=== PATIENT | female | born 1965 | race Caucasian/White ===

== ENCOUNTER 2017-06-21 08:19 | Inpatient (IN) ==
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
[2017-06-21] MEDS ORDERED: LORazepam 2 MG/ML VIAL ONE (08:39)
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
[2017-06-21] MEDS ORDERED: IPRATROPIUM/ALBUTEROL 3 ML AMPUL.NEB NEB ONE ×3 (08:59→12:55)
[2017-06-21 09:00] LABS: Basophils # (Auto) 0.1 K/mcL (0.0-0.3); Basophils % (Auto) 0.4 % (0.0-2.0); Eosinophils # (Auto) 0.3 K/mcL (0.0-0.7); Granulocytes % (Auto) 62.8 % (38.0-78.0); Lymphocytes # (Auto) 4.1 K/mcL (1.5-4.8); Lymphocytes % (Auto) 30.5 % (15.5-49.0); Mean Cell Volume 94.2 fL (80.0-100.0); Mean Corpuscular HGB Conc 33.1 g/dL (31.0-36.0); Mean Corpuscular Hemoglobin 31.2 pg (26.0-34.0); Monocytes # (Auto) 0.6 K/mcL (0.1-0.9); Monocytes % (Auto) 4.3 % (1.0-12.0); Platelet Count 218 K/mcL (140-440); RBC 4.38 M/mcL (4.00-5.20); Red Cell Distribution Width 14.5 % (11.5-14.5)
[2017-06-21 09:17] LABS: ALT/SGPT 30 U/l (0-40); Albumin 4.3 gm/dL (3.2-5.2); Albumin/Globulin Ratio 1.2 (1.0-2.3); Alkaline Phosphatase 66 U/L (39-117); Blood Urea Nitrogen 20 mg/dl (6-20)
[2017-06-21] MEDS ORDERED: LORazepam 2 MG/ML VIAL IV ONE ×2 (09:21→09:48)
[2017-06-21] MEDS ORDERED: IBUPROFEN 600 MG TABLET PO ONE (11:06)
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
[2017-06-21] MEDS ORDERED: methylPREDNISolone SOD SUCC 125 MG/2 ML VIAL IV ONE (14:18)
[2017-06-21] MEDS ORDERED: ONDANSETRON 4 MG/2 ML VIAL IV PRN (16:20)
[2017-06-21] MEDS ORDERED: ALBUTEROL SULFATE 2.5 MG/3 ML NEBULIZER NEB ONE (16:23)
[2017-06-21] MEDS ORDERED: DEXTROSE 31 GM ORAL.SUSP PO PRN (16:31)
[2017-06-21] MEDS ORDERED: ALBUTEROL SULFATE 2.5 MG/3 ML NEBULIZER ONE (16:31)
[2017-06-21] MEDS ORDERED: DEXTROSE 50% 50 ML VIAL IV PRN (16:31)
[2017-06-21] MEDS ORDERED: DICYCLOMINE 20 MG TABLET PO SCH (17:00)
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
[2017-06-21] MEDS: INSULIN LISPRO 1 UNIT/0.01 ML UNIT SQ SCH ×2 (17:22→21:31)
[2017-06-21 18:23] LABS: ALT/SGPT 29 U/l (0-40); Albumin 4.3 gm/dL (3.2-5.2); Albumin/Globulin Ratio 1.3 (1.0-2.3); Alkaline Phosphatase 62 U/L (39-117); Blood Urea Nitrogen 19 mg/dl (6-20)
[2017-06-21] MEDS: IPRATROPIUM/ALBUTEROL 3 ML AMPUL.NEB NEB SCH (18:55)
[2017-06-21] MEDS ORDERED: DICYCLOMINE 20 MG TABLET PO PRN (19:51)
[2017-06-21] MEDS: NORTRIPTYLINE 25 MG CAPSULE PO SCH (21:31)
[2017-06-21] MEDS: LORazepam 1 MG TABLET PO PRN (21:31)
[2017-06-21] MEDS: methylPREDNISolone SOD SUCC 125 MG/2 ML VIAL IV SCH (21:32)
[2017-06-21] MEDS: INSULIN GLARGINE, HUMAN 1 UNIT/0.01 ML SQ SCH (21:32)
[2017-06-21] MEDS: ALBUTEROL SULFATE 2.5 MG/3 ML NEBULIZER NEB PRN (22:20)
[2017-06-22] MEDS: ACETAMINOPHEN 325 MG TABLET PO PRN ×2 (03:00→20:39)
[2017-06-22] MEDS: IPRATROPIUM/ALBUTEROL 3 ML AMPUL.NEB NEB SCH ×4 (03:00→20:34)
[2017-06-22] MEDS: methylPREDNISolone SOD SUCC 125 MG/2 ML VIAL IV SCH ×3 (05:48→22:20)
[2017-06-22 05:52] LABS: Mean Cell Volume 93.9 fL (80.0-100.0); Mean Corpuscular HGB Conc 33.2 g/dL (31.0-36.0); Mean Corpuscular Hemoglobin 31.2 pg (26.0-34.0); Platelet Count 175 K/mcL (140-440); RBC 3.95 M/mcL (4.00-5.20); Red Cell Distribution Width 14.6 % (11.5-14.5)
[2017-06-22 06:03] LABS: ALT/SGPT 27 U/l (0-40); Albumin/Globulin Ratio 1.3 (1.0-2.3); Alkaline Phosphatase 58 U/L (39-117); Blood Urea Nitrogen 19 mg/dl (6-20)
[2017-06-22 06:36] LABS: Anisocytosis 1+ (NONE SEEN); Band Neutrophils % 4 % (0-10); Lymphocytes % 13 % (15-49); Monocytes % (Manual) 2 % (1-12); Platelet Estimate NORMAL (NORMAL); RBC Morphology ABNORM (NORMAL); Segmented Neutrophils % 81 % (38-78)
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
[2017-06-22] MEDS: LEVOTHYROXINE SODIUM 112 MCG TABLET PO SCH (07:44)
[2017-06-22] MEDS: INSULIN LISPRO 1 UNIT/0.01 ML UNIT SQ SCH ×7 (07:44→20:42)
[2017-06-22] MEDS: PANTOPRAZOLE 40 MG TABLET PO SCH (07:44)
[2017-06-22] MEDS: HYDROcodone/APAP 5/325MG TABLET PO PRN ×4 (08:38→22:18)
[2017-06-22] MEDS: ENOXAPARIN 40 MG/0.4 ML SYRINGE SQ SCH (09:09)
[2017-06-22] MEDS: ATORVASTATIN 20 MG TABLET PO SCH (09:10)
[2017-06-22] MEDS: INSULIN GLARGINE, HUMAN 1 UNIT/0.01 ML SQ SCH ×3 (09:10→20:52)
[2017-06-22] MEDS ORDERED: INSULIN GLARGINE, HUMAN 1 UNIT/0.01 ML SQ ONE (10:15)
[2017-06-22] MEDS: LORazepam 1 MG TABLET PO PRN ×2 (10:24→18:38)
[2017-06-22] MEDS: BENZOCAINE/MENTHOL 1 LOZENGE PO PRN (12:09)
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
[2017-06-22] MEDS: ALBUTEROL SULFATE 2.5 MG/3 ML NEBULIZER NEB PRN ×2 (15:43→22:52)
[2017-06-22] MEDS: NORTRIPTYLINE 25 MG CAPSULE PO SCH (20:39)
[2017-06-23] MEDS: IPRATROPIUM/ALBUTEROL 3 ML AMPUL.NEB NEB SCH ×3 (01:34→14:31)
[2017-06-23] MEDS: methylPREDNISolone SOD SUCC 125 MG/2 ML VIAL IV SCH (05:28)
[2017-06-23 05:41] LABS: Mean Cell Volume 94.8 fL (80.0-100.0); Mean Corpuscular HGB Conc 33.1 g/dL (31.0-36.0); Mean Corpuscular Hemoglobin 31.4 pg (26.0-34.0); Platelet Count 186 K/mcL (140-440); RBC 3.93 M/mcL (4.00-5.20); Red Cell Distribution Width 14.7 % (11.5-14.5)
[2017-06-23 05:57] LABS: ALT/SGPT 22 U/l (0-40); Albumin/Globulin Ratio 1.3 (1.0-2.3); Alkaline Phosphatase 59 U/L (39-117); Blood Urea Nitrogen 23 mg/dl (6-20)
[2017-06-23 06:31] LABS: Band Neutrophils % 7 % (0-10); Lymphocytes % 8 % (15-49); Monocytes % (Manual) 1 % (1-12); Platelet Estimate NORMAL (NORMAL); RBC Morphology NORMAL (NORMAL); Segmented Neutrophils % 84 % (38-78)
[2017-06-23] MEDS ORDERED: SODIUM POLYSTYRENE SULFONATE 15 GM/60 ML SUSPENSION PO ONE (07:09)
[2017-06-23] MEDS: PANTOPRAZOLE 40 MG TABLET PO SCH (08:27)
[2017-06-23] MEDS: LEVOTHYROXINE SODIUM 112 MCG TABLET PO SCH (08:27)
[2017-06-23] MEDS: ATORVASTATIN 20 MG TABLET PO SCH (08:44)
[2017-06-23] MEDS: INSULIN LISPRO 1 UNIT/0.01 ML UNIT SQ SCH ×7 (08:44→20:53)
[2017-06-23] MEDS: ENOXAPARIN 40 MG/0.4 ML SYRINGE SQ SCH (08:45)
[2017-06-23] MEDS: INSULIN GLARGINE, HUMAN 1 UNIT/0.01 ML SQ SCH ×2 (08:45→20:54)
[2017-06-23 09:38] LABS: Estimated Average Glucose(eAG) 160 mg/dL; Hemoglobin A1C 7.2 % HGB (4.0-6.0)
[2017-06-23] MEDS: ALBUTEROL SULFATE 2.5 MG/3 ML NEBULIZER NEB PRN (10:24)
[2017-06-23] MEDS: predniSONE 20 MG TABLET PO SCH (11:06)
[2017-06-23] MEDS: guaiFENesin 600 MG TAB.SR.12H PO SCH ×2 (11:06→21:18)
[2017-06-23] MEDS: LORazepam 1 MG TABLET PO PRN ×2 (11:06→17:32)
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
[2017-06-23 12:22] LABS: Blood Urea Nitrogen 25 mg/dl (6-20)
[2017-06-23] MEDS: HYDROcodone/APAP 5/325MG TABLET PO PRN ×2 (14:34→19:29)
[2017-06-23] MEDS ORDERED: LEVALBUTEROL 1.25 MG/3 ML AMPUL.NEB NEB PRN (16:26)
[2017-06-23] MEDS ORDERED: DEXTROSE 31 GM ORAL.SUSP PO PRN (16:27)
[2017-06-23] MEDS ORDERED: DEXTROSE 50% 50 ML VIAL IV PRN (16:27)
[2017-06-23] MEDS: IPRATROPIUM 2.5 ML AMPUL.NEB NEB SCH ×2 (16:35→21:27)
[2017-06-23] MEDS ORDERED: 0.9 % SODIUM CHLORIDE 1,000 ML IV SCH (18:15)
[2017-06-23] MEDS: LEVALBUTEROL 1.25 MG/3 ML AMPUL.NEB NEB SCH (18:31)
[2017-06-23] MEDS ORDERED: LEVALBUTEROL 0.63 MG/3 ML AMPUL.NEB NEB SCH (19:00)
[2017-06-23] MEDS: BENZOCAINE/MENTHOL 1 LOZENGE PO PRN (19:40)
[2017-06-23] MEDS: NORTRIPTYLINE 25 MG CAPSULE PO SCH (21:18)
[2017-06-24] MEDS: IPRATROPIUM 2.5 ML AMPUL.NEB NEB SCH ×4 (01:26→19:53)
[2017-06-24] MEDS: LEVALBUTEROL 1.25 MG/3 ML AMPUL.NEB NEB SCH ×4 (01:27→19:53)
[2017-06-24 05:28] LABS: Mean Cell Volume 94.4 fL (80.0-100.0); Mean Corpuscular HGB Conc 32.8 g/dL (31.0-36.0); Mean Corpuscular Hemoglobin 30.9 pg (26.0-34.0); Platelet Count 177 K/mcL (140-440); RBC 3.75 M/mcL (4.00-5.20); Red Cell Distribution Width 14.5 % (11.5-14.5)
[2017-06-24 06:02] LABS: ALT/SGPT 18 U/l (0-40); Albumin 3.6 gm/dL (3.2-5.2); Albumin/Globulin Ratio 1.3 (1.0-2.3); Alkaline Phosphatase 51 U/L (39-117); Blood Urea Nitrogen 25 mg/dl (6-20)
[2017-06-24 06:39] LABS: Lymphocytes % 25 % (15-49); Monocytes % (Manual) 6 % (1-12); Platelet Estimate NORMAL (NORMAL); RBC Morphology NORMAL (NORMAL); Segmented Neutrophils % 69 % (38-78)
[2017-06-24] MEDS: INSULIN LISPRO 1 UNIT/0.01 ML UNIT SQ SCH ×5 (07:43→21:32)
[2017-06-24] MEDS: LEVOTHYROXINE SODIUM 112 MCG TABLET PO SCH (07:53)
[2017-06-24] MEDS: PANTOPRAZOLE 40 MG TABLET PO SCH (07:53)
--- NOTE | 2017-06-24 08:50 | XRay Report ---
INDICATION: Small consolidation. Hypoxia. TECHNIQUE: AP chest x-ray,portable semiupright COMPARISON: 06/22/2017, 06/21/2017 FINDINGS:Lungs remain negative. No parenchymal infiltrate or mass. Heart size and vascularity are normal. No pulmonary edema. No pulmonary congestion. No acute abnormality or interval change IMPRESSION: Negative chest x-ray. No interval change Interpreted and Authenticated by: Harjeet Mims 06/24/17
[2017-06-24] MEDS: predniSONE 20 MG TABLET PO SCH ×2 (08:59→12:32)
[2017-06-24] MEDS: guaiFENesin 600 MG TAB.SR.12H PO SCH ×2 (08:59→21:32)
[2017-06-24] MEDS: HYDROcodone/APAP 5/325MG TABLET PO PRN ×3 (09:00→19:55)
[2017-06-24] MEDS: ATORVASTATIN 20 MG TABLET PO SCH (09:00)
[2017-06-24] MEDS: ENOXAPARIN 40 MG/0.4 ML SYRINGE SQ SCH (09:01)
[2017-06-24] MEDS: LORazepam 1 MG TABLET PO PRN ×3 (09:06→21:59)
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
[2017-06-24] MEDS: INSULIN GLARGINE, HUMAN 1 UNIT/0.01 ML SQ SCH ×2 (10:37→21:32)
[2017-06-24] MEDS: LEVALBUTEROL 0.63 MG/3 ML AMPUL.NEB NEB PRN (16:10)
[2017-06-24] MEDS ORDERED: BISACODYL 10 MG SUPP.RECT PR PRN (20:27)
[2017-06-24] MEDS ORDERED: MAGNESIUM HYDROXIDE 30 ML ORAL.SUSP PO PRN (20:27)
[2017-06-24] MEDS: NORTRIPTYLINE 25 MG CAPSULE PO SCH (21:32)
[2017-06-24] MEDS: DOCUSATE SODIUM 100 MG CAPSULE PO SCH (21:32)
[2017-06-25] MEDS: IPRATROPIUM 2.5 ML AMPUL.NEB NEB SCH ×4 (03:59→18:46)
[2017-06-25] MEDS: LEVALBUTEROL 1.25 MG/3 ML AMPUL.NEB NEB SCH ×4 (04:00→18:46)
[2017-06-25] MEDS: HYDROcodone/APAP 5/325MG TABLET PO PRN ×3 (04:00→18:22)
[2017-06-25] MEDS: LORazepam 1 MG TABLET PO PRN ×2 (04:04→22:01)
[2017-06-25 04:51] LABS: Mean Cell Volume 94.2 fL (80.0-100.0); Mean Corpuscular HGB Conc 33.8 g/dL (31.0-36.0); Mean Corpuscular Hemoglobin 31.9 pg (26.0-34.0); Platelet Count 167 K/mcL (140-440); RBC 3.73 M/mcL (4.00-5.20); Red Cell Distribution Width 14.3 % (11.5-14.5)
[2017-06-25 05:17] LABS: ALT/SGPT 23 U/l (0-40); Albumin 3.6 gm/dL (3.2-5.2); Albumin/Globulin Ratio 1.3 (1.0-2.3); Alkaline Phosphatase 50 U/L (39-117); Blood Urea Nitrogen 23 mg/dl (6-20)
[2017-06-25 06:18] LABS: Band Neutrophils % 2 % (0-10); Lymphocytes % 21 % (15-49); Monocytes % (Manual) 1 % (1-12); Platelet Estimate NORMAL (NORMAL); RBC Morphology NORMAL (NORMAL); Segmented Neutrophils % 76 % (38-78)
[2017-06-25] MEDS: LEVOTHYROXINE SODIUM 112 MCG TABLET PO SCH (07:31)
[2017-06-25] MEDS: PANTOPRAZOLE 40 MG TABLET PO SCH (07:32)
[2017-06-25] MEDS: INSULIN LISPRO 1 UNIT/0.01 ML UNIT SQ SCH ×4 (07:40→20:52)
[2017-06-25] MEDS: predniSONE 20 MG TABLET PO SCH ×2 (07:55→12:11)
[2017-06-25] MEDS: DOCUSATE SODIUM 100 MG CAPSULE PO SCH ×2 (08:56→20:52)
[2017-06-25] MEDS: guaiFENesin 600 MG TAB.SR.12H PO SCH ×2 (08:56→20:52)
[2017-06-25] MEDS: ENOXAPARIN 40 MG/0.4 ML SYRINGE SQ SCH (08:56)
[2017-06-25] MEDS: INSULIN GLARGINE, HUMAN 1 UNIT/0.01 ML SQ SCH ×2 (09:40→20:51)
[2017-06-25] MEDS: ATORVASTATIN 20 MG TABLET PO SCH (09:40)
[2017-06-25] MEDS: 0.9 % SODIUM CHLORIDE 10 ML SYRINGE IV SCH ×3 (09:48→20:52)
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
[2017-06-25] MEDS: NORTRIPTYLINE 25 MG CAPSULE PO SCH (20:52)
[2017-06-25] MEDS: LEVALBUTEROL 0.63 MG/3 ML AMPUL.NEB NEB PRN (22:57)
[2017-06-26] MEDS: LEVALBUTEROL 1.25 MG/3 ML AMPUL.NEB NEB SCH ×4 (00:50→18:50)
[2017-06-26] MEDS: IPRATROPIUM 2.5 ML AMPUL.NEB NEB SCH ×4 (00:50→18:50)
[2017-06-26] MEDS: LEVALBUTEROL 0.63 MG/3 ML AMPUL.NEB NEB PRN ×2 (04:42→10:31)
[2017-06-26] MEDS: LORazepam 1 MG TABLET PO PRN ×3 (04:42→21:38)
[2017-06-26] MEDS: HYDROcodone/APAP 5/325MG TABLET PO PRN ×2 (04:42→11:18)
[2017-06-26] MEDS: 0.9 % SODIUM CHLORIDE 10 ML SYRINGE IV SCH ×3 (04:43→22:29)
[2017-06-26 05:38] LABS: Mean Cell Volume 94.8 fL (80.0-100.0); Mean Corpuscular Hemoglobin 31.3 pg (26.0-34.0); Platelet Count 154 K/mcL (140-440); RBC 3.89 M/mcL (4.00-5.20); Red Cell Distribution Width 14.2 % (11.5-14.5)
[2017-06-26 05:58] LABS: ALT/SGPT 25 U/l (0-40); Albumin 3.5 gm/dL (3.2-5.2); Albumin/Globulin Ratio 1.3 (1.0-2.3); Alkaline Phosphatase 49 U/L (39-117); Blood Urea Nitrogen 23 mg/dl (6-20)
[2017-06-26 06:21] LABS: Eosinophils % (Manual) 1 % (0-7); Lymphocytes % 22 % (15-49); Monocytes % (Manual) 7 % (1-12); Platelet Estimate NORMAL (NORMAL); RBC Morphology NORMAL (NORMAL); Segmented Neutrophils % 70 % (38-78)
[2017-06-26] MEDS: LEVOTHYROXINE SODIUM 112 MCG TABLET PO SCH (08:01)
[2017-06-26] MEDS: PANTOPRAZOLE 40 MG TABLET PO SCH (08:01)
[2017-06-26] MEDS: predniSONE 20 MG TABLET PO SCH ×2 (08:01→11:50)
[2017-06-26] MEDS: INSULIN LISPRO 1 UNIT/0.01 ML UNIT SQ SCH ×4 (08:03→21:37)
[2017-06-26] MEDS: DOCUSATE SODIUM 100 MG CAPSULE PO SCH ×2 (08:52→21:38)
[2017-06-26] MEDS: guaiFENesin 600 MG TAB.SR.12H PO SCH ×2 (08:52→21:37)
[2017-06-26] MEDS: INSULIN GLARGINE, HUMAN 1 UNIT/0.01 ML SQ SCH ×2 (08:52→21:37)
[2017-06-26] MEDS: ENOXAPARIN 40 MG/0.4 ML SYRINGE SQ SCH (08:52)
[2017-06-26] MEDS: ATORVASTATIN 20 MG TABLET PO SCH (08:54)
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
[2017-06-26] MEDS: NORTRIPTYLINE 25 MG CAPSULE PO SCH (21:38)
[2017-06-27] MEDS: IPRATROPIUM 2.5 ML AMPUL.NEB NEB SCH ×4 (00:46→19:23)
[2017-06-27] MEDS: LEVALBUTEROL 1.25 MG/3 ML AMPUL.NEB NEB SCH ×4 (00:46→19:24)
[2017-06-27] MEDS: PANTOPRAZOLE 40 MG TABLET PO SCH (07:58)
[2017-06-27] MEDS: predniSONE 20 MG TABLET PO SCH ×2 (07:58→11:52)
[2017-06-27] MEDS: LEVOTHYROXINE SODIUM 112 MCG TABLET PO SCH (07:58)
[2017-06-27] MEDS: 0.9 % SODIUM CHLORIDE 10 ML SYRINGE IV SCH ×3 (07:58→20:54)
[2017-06-27] MEDS: INSULIN LISPRO 1 UNIT/0.01 ML UNIT SQ SCH ×4 (08:10→20:51)
[2017-06-27] MEDS: ATORVASTATIN 20 MG TABLET PO SCH (09:29)
[2017-06-27] MEDS: DOCUSATE SODIUM 100 MG CAPSULE PO SCH ×2 (09:30→20:53)
[2017-06-27] MEDS: guaiFENesin 600 MG TAB.SR.12H PO SCH ×2 (09:30→20:53)
[2017-06-27] MEDS: ENOXAPARIN 40 MG/0.4 ML SYRINGE SQ SCH (09:31)
[2017-06-27] MEDS: INSULIN GLARGINE, HUMAN 1 UNIT/0.01 ML SQ SCH ×2 (10:12→20:52)
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
[2017-06-27] MEDS: 0.9 % SODIUM CHLORIDE 1,000 ML IV SCH ×2 (11:30→20:52)
[2017-06-27] MEDS: LORazepam 1 MG TABLET PO PRN ×2 (11:53→20:53)
[2017-06-27 13:53] LABS: Blood Urea Nitrogen 21 mg/dl (6-20)
[2017-06-27] MEDS: HYDROcodone/APAP 5/325MG TABLET PO PRN (20:52)
[2017-06-27] MEDS: NORTRIPTYLINE 25 MG CAPSULE PO SCH (20:53)
[2017-06-28] MEDS: LEVALBUTEROL 1.25 MG/3 ML AMPUL.NEB NEB SCH ×2 (01:34→07:10)
[2017-06-28] MEDS: IPRATROPIUM 2.5 ML AMPUL.NEB NEB SCH ×2 (01:34→07:10)
[2017-06-28] MEDS: HYDROcodone/APAP 5/325MG TABLET PO PRN ×2 (01:51→12:46)
[2017-06-28] MEDS: BENZOCAINE/MENTHOL 1 LOZENGE PO PRN (01:51)
[2017-06-28] MEDS: 0.9 % SODIUM CHLORIDE 10 ML SYRINGE IV SCH (05:08)
[2017-06-28 05:56] LABS: Basophils # (Auto) 0 K/mcL (0.0-0.3); Basophils % (Auto) 0.1 % (0.0-2.0); Eosinophils # (Auto) 0 K/mcL (0.0-0.7); Eosinophils % (Auto) 0 % (0.0-7.0); Granulocytes % (Auto) 76.7 % (38.0-78.0); Lymphocytes # (Auto) 2.9 K/mcL (1.5-4.8); Lymphocytes % (Auto) 18.8 % (15.5-49.0); Mean Cell Volume 94.1 fL (80.0-100.0); Mean Corpuscular HGB Conc 33.4 g/dL (31.0-36.0); Mean Corpuscular Hemoglobin 31.4 pg (26.0-34.0); Monocytes # (Auto) 0.7 K/mcL (0.1-0.9); Monocytes % (Auto) 4.4 % (1.0-12.0); Platelet Count 161 K/mcL (140-440); Red Cell Distribution Width 14.4 % (11.5-14.5)
[2017-06-28 06:22] LABS: Blood Urea Nitrogen 24 mg/dl (6-20)
[2017-06-28] MEDS: INSULIN LISPRO 1 UNIT/0.01 ML UNIT SQ SCH (09:21)
[2017-06-28] MEDS: PANTOPRAZOLE 40 MG TABLET PO SCH (09:21)
[2017-06-28] MEDS: guaiFENesin 600 MG TAB.SR.12H PO SCH (09:22)
[2017-06-28] MEDS: predniSONE 20 MG TABLET PO SCH (09:22)
[2017-06-28] MEDS: INSULIN GLARGINE, HUMAN 1 UNIT/0.01 ML SQ SCH (09:23)
[2017-06-28] MEDS: ATORVASTATIN 20 MG TABLET PO SCH (09:23)
[2017-06-28] MEDS: DOCUSATE SODIUM 100 MG CAPSULE PO SCH (09:24)
[2017-06-28] MEDS: LORazepam 1 MG TABLET PO PRN (09:28)
[2017-06-28] MEDS: ENOXAPARIN 40 MG/0.4 ML SYRINGE SQ SCH (09:32)
[2017-06-28] MEDS: LEVOTHYROXINE SODIUM 112 MCG TABLET PO SCH (09:32)
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
== END 2017-06-28 13:00 | disposition home or self-care (01) | DRG 189 ==
LOC: ICU 08:19 → ED 08:19 → ICU 16:45
PROVIDERS: ADMIT Internal Medicine; ATTEND Internal Medicine

== ENCOUNTER 2017-10-24 18:16 | Inpatient (IN) ==
[2017-10-24] MEDS ORDERED: IOPAMIDOL 100 ML BOTTLE IV ONE (18:17)
[2017-10-24] MEDS ORDERED: IPRATROPIUM/ALBUTEROL 3 ML AMPUL.NEB NEB ONE ×2 (18:54→18:56)
[2017-10-24] MEDS ORDERED: MAGNESIUM SULFATE 2 GM/50 ML BAG IV ONE (18:56)
[2017-10-24] MEDS ORDERED: methylPREDNISolone SOD SUCC 125 MG/2 ML VIAL IV ONE (18:56)
--- NOTE | 2017-10-24 18:58 | XRay Report ---
INDICATION: Cough. Dyspnea. TECHNIQUE: PA and lateral upright chest x-ray COMPARISON: Multiple previous chest x-rays including examinations dated 10/14/2017, 10/04/2017, 06/24/2017, 06/22/2017 FINDINGS:Bilateral pulmonary parenchymal infiltrates. There is right perihilar infiltrate and left basilar infiltrate. Appearance is consistent with pneumonia. Findings are new since 10/14/2017. Heart size and vascularity are normal. No pulmonary edema. No pulmonary congestion. Clau and mediastinum are negative. No pleural fluid. IMPRESSION: 1. Bilateral parenchymal infiltrates consistent with pneumonia 2. Findings are new since 10/14/2017 Interpreted and Authenticated by: Harjeet Mims 10/24/17
[2017-10-24] MEDS ORDERED: LEVOFLOXACIN 500 MG/100 ML BAG IV ONE (19:35)
[2017-10-24] MEDS ORDERED: 0.9 % SODIUM CHLORIDE 1,000 ML IV ONE (19:47)
--- NOTE | 2017-10-24 20:08 | Cat Scan Report ---
CLINICAL INFORMATION: Pneumonia COMPARISON: Chest x-ray dated 10/24/2017. Prior chest x-rays dated 10/14/2017, 10/04/2017, 06/24/2017 TECHNIQUE: Axial contrast enhanced images through the chest. Sagittally and coronally reformatted images. MIP reformatted images. 80 mL contrast material injected intravenously. FINDINGS: Chest x-ray demonstrates patchy new pulmonary parenchymal infiltrates consistent with pneumonia. These are identified on CT scan. There are irregular infiltrates in the right upper lobe, lingular segment of the left upper lobe, right middle lobe, and bilateral lower lobes. Infiltrates are unchanged since chest x-ray dated 10/24/2017 and new since 2017. Findings remain consistent with pneumonia. No dense consolidation. No parenchymal mass to suggest neoplasm. Findings may be related to atypical pneumonia or viral pneumonia. Main pulmonary artery, right pulmonary artery, left pulmonary artery are negative. No intraluminal filling defects. No lobar, segmental, or subsegmental abnormalities. Nonspecific bilateral hilar adenopathy. There is a 17 mm perivascular mediastinal lymph node. No pretracheal nodes. No axillary adenopathy. No supraclavicular adenopathy. No pericardial fluid. No pleural fluid. There is fatty infiltration of the liver. No focal intrahepatic abnormalities. IMPRESSION: 1. Bilateral pulmonary parenchymal infiltrates consistent with pneumonia 2. Hepatic steatosis 3. Nonspecific hilar and mediastinal adenopathy, probably reactive 4. No pulmonary embolism The exam was performed using radiation dose optimization techniques including, but not limited to, automated exposure control, adjustment of the mA and/or kV according to patient size and use of iterative reconstruction technique. Interpreted and Authenticated by: Harjeet Mims 10/24/17
[2017-10-24 20:12] LABS: Basophils # (Auto) 0 K/mcL (0.0-0.3); Basophils % (Auto) 0.2 % (0.0-2.0); Eosinophils # (Auto) 0.1 K/mcL (0.0-0.7); Eosinophils % (Auto) 0.4 % (0.0-7.0); Granulocytes % (Auto) 79.9 % (38.0-78.0); Lymphocytes # (Auto) 2.5 K/mcL (1.5-4.8); Lymphocytes % (Auto) 13.5 % (15.5-49.0); Mean Cell Volume 91.3 fL (80.0-100.0); Mean Corpuscular HGB Conc 32.7 g/dL (31.0-36.0); Mean Corpuscular Hemoglobin 29.9 pg (26.0-34.0); Monocytes # (Auto) 1.1 K/mcL (0.1-0.9); Platelet Count 236 K/mcL (140-440); RBC 4.41 M/mcL (4.00-5.20); Red Cell Distribution Width 14.3 % (11.5-14.5)
[2017-10-24 20:39] LABS: ALT/SGPT 50 U/l (0-40); Alkaline Phosphatase 90 U/L (39-117); Blood Urea Nitrogen 12 mg/dl (6-20)
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
[2017-10-24] MEDS ORDERED: DEXTROSE 50% 50 ML VIAL IV PRN (21:57)
[2017-10-24] MEDS ORDERED: ACETAMINOPHEN 325 MG TABLET PO PRN (21:57)
[2017-10-24] MEDS ORDERED: MAGNESIUM SULFATE 2 GM/50 ML BAG IV PRN (21:57)
[2017-10-24] MEDS ORDERED: ONDANSETRON 4 MG/2 ML VIAL IV PRN (21:57)
[2017-10-24] MEDS ORDERED: POTASSIUM CHLORIDE 20 MEQ PACKET PO PRN (21:57)
[2017-10-24] MEDS ORDERED: ACETAMINOPHEN 1,000 MG/100 ML BOTTLE IV PRN (21:57)
[2017-10-24] MEDS ORDERED: DEXTROSE 31 GM ORAL.SUSP PO PRN (21:57)
[2017-10-24] MEDS ORDERED: cefTRIAXone 2 GM VIAL ONE (22:12)
[2017-10-24] MEDS ORDERED: IBUPROFEN 200 MG TABLET PO PRN (22:27)
[2017-10-24] MEDS ORDERED: HYDROcodone/APAP 5/325MG TABLET PO ONE (22:37)
[2017-10-24] MEDS: HEPARIN 5,000 UNIT/ML VIAL SQ SCH (22:38)
[2017-10-24] MEDS: IPRATROPIUM/ALBUTEROL 3 ML AMPUL.NEB NEB SCH (22:38)
[2017-10-24] MEDS: DOCUSATE SODIUM 100 MG CAPSULE PO SCH (22:38)
[2017-10-24] MEDS: SENNOSIDES/DOCUSATE SODIUM 1 TAB TABLET PO SCH (22:39)
[2017-10-24] MEDS: INSULIN LISPRO 1 UNIT/0.01 ML UNIT SQ SCH (22:39)
[2017-10-24] MEDS: BUDESONIDE 0.5 MG/2 ML AMPUL.NEB NEB SCH (22:39)
[2017-10-24] MEDS: 0.9 % SODIUM CHLORIDE 10 ML SYRINGE IV SCH (22:40)
[2017-10-24] MEDS: cefTRIAXone 2 GM in DEXTROSE 5% IN WATER 50 ML IV SCH (22:41)
[2017-10-24] MEDS ORDERED: IBUPROFEN 200 MG TABLET PO ONE (22:50)
[2017-10-24] MEDS: 0.9 % SODIUM CHLORIDE 1,000 ML IV SCH (22:52)
[2017-10-24 23:29] LABS: C-Reactive Protein 19.7 mg/dl (0.0-0.8)
[2017-10-25] MEDS: methylPREDNISolone SOD SUCC 125 MG/2 ML VIAL IV SCH ×4 (00:20→17:42)
[2017-10-25] MEDS ORDERED: LORazepam 2 MG/ML VIAL ONE (01:45)
[2017-10-25] MEDS: IPRATROPIUM/ALBUTEROL 3 ML AMPUL.NEB NEB SCH ×6 (02:01→23:20)
[2017-10-25 05:20] LABS: ALT/SGPT 46 U/l (0-40); Albumin 3.7 gm/dL (3.2-5.2); Alkaline Phosphatase 70 U/L (39-117); Bilirubin,Direct < 0.2 mg/dL (0.0-0.3); Blood Urea Nitrogen 12 mg/dl (6-20); Gamma Glutamyl Transpeptidase 72 U/L (5-36); Uric Acid 4.6 mg/dL (2.5-8.0)
[2017-10-25 05:23] LABS: Mean Cell Volume 92.2 fL (80.0-100.0); Mean Corpuscular HGB Conc 33.4 g/dL (31.0-36.0); Mean Corpuscular Hemoglobin 30.8 pg (26.0-34.0); Platelet Count 224 K/mcL (140-440); RBC 4.11 M/mcL (4.00-5.20); Red Cell Distribution Width 14.1 % (11.5-14.5)
[2017-10-25] MEDS: 0.9 % SODIUM CHLORIDE 10 ML SYRINGE IV SCH ×3 (05:39→21:36)
--- NOTE | 2017-10-25 06:46 | History and Physical Report ---
DATE OF ADMISSION: 10/24/2017 DATE OF ADMISSION: 10/24/2017 REASON FOR ADMISSION: Shortness of breath. HISTORY OF CHIEF COMPLAINT: Ms. Landeros is a 51-year-old with known history of COPD, active smoker with [id number] history of smoking history who presents to [facility] ER with worsening shortness of breath. The patient has symptoms started roughly 2 weeks ago and was started on prednisone and oral antibiotic by her primary care physician, Ginny Jiménez. However, over the last 3 days the patient has had increasing productive sputum along with increased purulence and volume and associated shortness of breath. The patient was unable to function. The dyspnea progressed to severe shortness of breath at rest with association of orthopnea. She also had associated fever along with cough-induced chest pain. With worsening symptoms, the patient came to [facility] Emergency Room. Initial workup was significant for white count over 18,000 with chest infiltrates. The patient was significantly tachycardic at 140s, RR 40 with pH 7.49, PaO2 41. With impending respiratory failure, the patient was started on BiPAP. The patient received steroids, antibiotics, bronchodilators, cultures and subsequently Hospitalist Service was consulted. At the time of evaluation, the patient is on BiPAP. She endorses to history as above. She was able to answer some of the questions. She is barely able to talk in full sentences. She endorses sick contacts including grandson. She reportedly quit smoking 4 days ago, but has had frequent flares of her COPD. She is on home oxygen. She does not recollect having a pneumonia vaccine. She denies recent medication changes. REVIEW OF SYSTEMS: Ten-point review of system was performed and negative except for ones discussed above. PAST MEDICAL HISTORY: Significant for: 1. O2 dependent COPD/asthma. 2. Tobacco dependence. 3. Insulin dependent diabetes mellitus type 2. 4. Irritable bowel syndrome. 5. Hypothyroidism. 6. Peptic ulcer disease. SURGICAL HISTORY: Significant for: 1. Tonsillectomy. 2. Eye surgery. 3. Hysterectomy. 4. Cholecystectomy. FAMILY HISTORY: Significant for coronary artery disease. SOCIAL HISTORY: The patient lives at home along with her son, Eleuterio. She is currently on home oxygen, continues to smoke a pack a day, but reportedly quit 4 days ago. ALLERGIES: Known to: 1. PCN 2. SULFA. 3. OXYCODONE. CURRENT MEDICATIONS: 1. Atorvastatin 10. 4. Albuterol inhaled every 4 hours as needed. 5. Lansoprazole 30. 6. Lorazepam 1. 7. Zofran 4 mg every 4-6 hours. 8. Metformin 500 twice daily. 9. 10 four times a day. 10. Levothyroxine 112 each day. 11. Combivent/ipratropium and albuterol inhaled every 8 hours. PHYSICAL EXAMINATION: GENERAL EXAM: The patient is in remarkable distress from shortness of breath. VITAL SIGNS: Blood pressure 120/75, respiratory rate 32, pulse 137, temperature 97.9, sats 90 percent on 3 liters of oxygen and subsequently on 40 percent FIO2 BiPAP. HEENT: Pupils symmetric. Oral cavity dry. No ear or nose discharge. Head: Normocephalic and atraumatic. NECK: No lymphadenopathy. CHEST: S1, S2 regular rhythm, tachycardia. ESM grade 1. Diminished breath sounds at bases with prolonged expiratory wheeze/intercostal retractions. ABDOMEN: Soft, nontender. LOWER EXTREMITY EXAMINATION: No cyanosis or clubbing. No joint swelling. SKIN: No suspicious lesions. PSYCH: Alert, cooperative, anxious. NEURO: Nonfocal, normal higher function. LABS AND IMAGING: White count 8.9, hemoglobin 13.2, and platelets 236. D-dimer of 1.83. Lactic acid 1.1. Sodium 130, potassium 4.1, creatinine 0.9, BUN 12. I Kareem 1.6. CRP trending. Troponins negative. EKG: Sinus tachycardia. No ST changes. AB.49/41/50 on [address] chest: Bilateral pulmonary parenchymal infiltrate, consistent with PNA, hilar adenopathy. ASSESSMENT AND PLAN: A 51-year-old with known history of O2 dependent chronic obstructive pulmonary disease, admitted with bilateral pneumonia. 1. Bilateral pneumonia, likely community-acquired. Continue antibiotic coverage on Rocephin/Levaquin. Continue pulmonary toilet. 2. Hypoxic respiratory failure. Start noninvasive ventilation. 3. Severe sepsis secondary to above. Continue antibiotic coverage. Cultures, crystalloids, and close hemodynamic monitoring in intensive care unit. OHOGAMIUT score of 20 on admission. 4. Chronic obstructive pulmonary disease exacerbation. Continue IV steroids, bronchodilators, pulmonary toilet and treatment of primary etiology. 5. Other prior medical issues, including: a. Diabetes mellitus type 2. Continue basal prandial insulin. b. History of hypothyroidism. Continue thyroxine. c. Anxiety disorder. Continue lorazepam/nortriptyline. d. CODE STATUS: FULL CODE. e. Prophylaxis, on heparin. PLAN FOR TODAY: 1. Admit as inpatient in ICU. 2. Noninvasive ventilation. 3. Serial blood gases. 4. Chest imaging. 5. Sepsis management per guidelines. 6. IV steroids and bronchodilators. 7. Preexisting medical conditions as above. 8. Overall a high-complexity admit, mandating hospitalization and ICU care with serial blood gas, noninvasive ventilation and titration. 9. Continue steroids. 10. Start mechanical ventilation. Total time spent on history and physical over 65 minutes, in addition to 35 minutes of critical exam spent on management of NI ventilation, blood gas, imaging interpretation, and stabilization of the patient in ICU. AA:allison Job ID: [id number] Doc ID: [id number] Juan Diego Crabtree MD MTDCorrina
[2017-10-25 07:28] LABS: Band Neutrophils % 5 % (0-10); Lymphocytes % 7 % (15-49); Monocytes % (Manual) 1 % (1-12); Platelet Estimate NORMAL (NORMAL); RBC Morphology NORMAL (NORMAL); Segmented Neutrophils % 87 % (38-78)
[2017-10-25] MEDS: BUDESONIDE 0.5 MG/2 ML AMPUL.NEB NEB SCH ×2 (07:52→19:30)
[2017-10-25] MEDS: INSULIN LISPRO 1 UNIT/0.01 ML UNIT SQ SCH ×4 (09:19→21:35)
[2017-10-25] MEDS: LEVOFLOXACIN 750 MG/150 ML BAG IV SCH (09:19)
[2017-10-25] MEDS: DOCUSATE SODIUM 100 MG CAPSULE PO SCH ×2 (09:19→21:35)
[2017-10-25] MEDS: HEPARIN 5,000 UNIT/ML VIAL SQ SCH ×2 (09:19→21:35)
[2017-10-25] MEDS: cefTRIAXone 2 GM in DEXTROSE 5% IN WATER 50 ML IV SCH (09:20)
--- NOTE | 2017-10-25 10:17 | Internal Med Progress Note ---
Medical - PN: Subj Patient information: Note initiated : 10/25/17 at 10:12 am Service Date, if different from initiated Date: [] Patient: Rachele Landeros a 51 y/o F admitted on 10/24/17 for cough, short of breath. Chief Complaint: [] Interval history: HISTORY OF CHIEF COMPLAINT: Ms. Landeros is a 51-year-old with known history of COPD, active smoker with [id number]-[id number] history of smoking history who presents to [facility] ER with worsening shortness of breath. The patient has symptoms started roughly 2 weeks ago and was started on prednisone and oral antibiotic by her primary care physician, Ginny Jiménez. However, over the last 3 days the patient has had increasingproductive sputum along with increased purulence and volume andassociated shortness of breath. The patient was unable to function. The dyspnea progressed to severe shortness of breath at rest withassociation of orthopnea. She also had associated fever along withcough-induced chest pain. With worsening symptoms, the patient came [facility] Emergency Room. Initial workup was significant for whitecount over 18,000 with chest infiltrates. The patient was significantly tachycardic at 140s, RR 40 with pH 7.49, PaO2 41. Withimpending respiratory failure, the patient was started onBiPAP. The patient received steroids, antibiotics, bronchodilators, cultures and subsequently Hospitalist Service was consulted. 10/25- patient currently improved after overnight BiPAP. Blood gases improved with pH 7.4/45/149 on 19/12 I/E/50% FiO2 titrated down to 30%. Patient had frequent spells of coughing but improved hemodynamics with improved tachycardia from 140-100 ML with tachypnea from 40-22. white count down from 18,000 to 14.4. Mycoplasma IgM positive. MRSA nasal swab +. sputum culture moderate gram negative intracervical coccobacillary. continue Haemophilus coverage. - Constitutional Vitals: Vital Signs Temp Pulse Resp BP Pulse Ox 98.0 F 88 19 92/69 96 10/25/17 00:01 10/25/17 08:01 10/25/17 08:01 10/25/17 07:01 10/25/17 07:01 Period Temp Pulse Resp BP Sys/Garrison Pulse Ox Last 24 Hr 97.9 F-98.6 F 63-137 18-32 89-120/69-87 90-100 Intake and Output 10/24/17 10/25/17 10/25/17 21:59 05:59 13:59 Intake Total / Output Total 3 Balance -3 -3 Weight 203 lb 14.4 oz Intake & Output: Intake & Output 10/24/17 10/25/17 10/25/17 21:59 05:59 13:59 Intake Total Output Total Balance - -3 Weight 203 lb 14.4 oz Intake: IV Sodium Chloride 0.9% 1,000 ml @ 541 / 541 Wide Open IV BOLUS ONE Rx#: [id number] Output: # of times incontinent of urine General appearance: cooperative, moderate distress (shortness of breath) Exam: intermittently on BiPAP Prolonged expiratory phase with rhonchi labored breathing Nondistended abdomen no lymphedema Tachycardia tachypnea Medical - PN: Obj Da - Labs CBC & Chem 7: 10/25/17 03:35 10/25/17 03:35 Labs: Abnormal Lab Results 10/25/17 10/25/17 10/24/17 03:35 03:35 23:30 WBC 14.4 H Gran % Lymph % (Auto) Gran # Knott # (Auto) Seg Neutrophils % 87 H Lymphocytes % 7 L ESR D-Dimer Chloride Anion Gap Glucose 206 H POC Glucose POC WB Ioniz Calcium Magnesium 2.6 H Total Bilirubin GGT 72 H ALT 46 H C-Reactive Protein Globulin Mycoplasma pneumon IgM Positive A 10/24/17 10/24/17 10/24/17 22:10 22:10 19:19 WBC Gran % Lymph % (Auto) Gran # Knott # (Auto) Seg Neutrophils % Lymphocytes % ESR 95 H D-Dimer Chloride 91 L Anion Gap 19.0 H Glucose 155 H POC Glucose 162 H POC WB Ioniz Calcium 1.06 L Magnesium Total Bilirubin 1.2 H GGT ALT 50 H C-Reactive Protein 19.7 H Globulin 3.9 H Mycoplasma pneumon IgM 10/24/17 10/24/17 19:19 19:19 WBC 18.9 H Gran % 79.9 H Lymph % (Auto) 13.5 L Gran # 15.1 H Knott # (Auto) 1.1 H Seg Neutrophils % Lymphocytes % ESR D-Dimer 1.83 H Chloride Anion Gap Glucose POC Glucose POC WB Ioniz Calcium Magnesium Total Bilirubin GGT ALT C-Reactive Protein Globulin Mycoplasma pneumon IgM Meds: Medications Acetaminophen (Tylenol) 650 mg PO Q4-6HP PRN PRN Reason: PAIN/FEVER > 101 Hydrocodone Bitart/Acetaminophen ([place] 5/325mg) 1 tab PO Q4-6HP PRN PRN Reason: PAIN LEVEL 3-6 Albuterol/Ipratropium (Duoneb) 3 ml NEB Q4HRT [facility] Last Admin: 10/25/17 07:52 Dose: 3 ml Budesonide (Pulmicort) 0.5 mg NEB Q12 [facility] Last Admin: 10/25/17 07:52 Dose: 0.5 mg Dextrose (Dextrose 50%) 0 ml IV UD PRN PRN Reason: Hypoglycemia Diagnostic Test (Pha) (Accu-Chek) 1 each FS ACHS [facility] Last Admin: 10/25/17 09:19 Dose: 1 each Docusate Sodium (Colace) 100 mg PO BID [facility] Last Admin: 10/25/17 09:19 Dose: 100 mg Glucose (Insta-Glucose) 15 gm PO PRN PRN PRN Reason: Hypoglycemia Heparin Sodium (Porcine) (Heparin) 5,000 unit SQ Q12 [facility] Last Admin: 10/25/17 09:19 Dose: 5,000 unit Ceftriaxone Sodium 2 gm/ (Dextrose) 50 mls @ 100 mls/hr IV Q24H [facility] Last Admin: 10/25/17 09:20 Dose: 100 mls/hr Levofloxacin (Levaquin) 750 mg in 150 mls @ 100 mls/hr IV Q24H [facility] Last Admin: 10/25/17 09:19 Dose: 100 mls/hr Magnesium Sulfate (Magnesium Sulfate) 2 gm in 50 mls @ 50 mls/hr IV UD PRN PRN Reason: MG = or < 1.7 Sodium Chloride (Sodium Chloride 0.9%) 1,000 mls @ 50 mls/hr IV .Q20H [facility] Stop: 10/27/17 09:56 Last Admin: 10/24/17 22:52 Dose: 50 mls/hr Acetaminophen (Ofirmev) 1,000 mg in 100 mls @ 200 mls/hr IV Q6HP PRN PRN Reason: PAIN/FEVER > 101 Ibuprofen (Motrin) 200 mg PO Q6HP PRN PRN Reason: Pain Insulin Human Lispro (Humalog) 0 unit SQ ACHS [facility] PRN Reason: Protocol Last Admin: 10/25/17 09:19 Dose: 3 unit Lorazepam (Ativan) 0 mg IV Q4HP PRN PRN Reason: ANXIETY/SEDATION Methylprednisolone Sodium Succinate (Solu-Medrol) 60 mg IV Q6 [facility] Last Admin: 10/25/17 05:41 Dose: 60 mg Ondansetron HCl (Zofran) 4 mg IV Q4-6HP PRN PRN Reason: Nausea And Vomiting Potassium Chloride (Klor-Con) 40 meq PO DAILYP PRN PRN Reason: K+ < 3.5 Senna/Docusate Sodium (Senna Plus Tablet) 1 tab PO HS [facility] Last Admin: 10/24/17 22:39 Dose: 1 tab Sodium Chloride (Saline Flush) 10 ml IV Q8 [facility] Last Admin: 10/25/17 05:39 Dose: 10 ml Medical - PN: A/P - Time Spent With Patient Total time spent is greater than 50% in coordination of care (as documented) at patient's floor/unit and/or counseling patient: Greater than 35 minutes (critical care time) - Narrative A/P Narrative: * Acute hypoxic respiratory failure- large AA gradient. managed with noninvasive ventilation. On 30% FiO2. Improving blood gas and work of breathing * Community acquired pneumonia likely Haemophilus/mycoplasma, sputum Gram staingram-negative coccobacilli-continue antibiotic coverage * COPD exacerbation secondary to above-continue IV steroids/bronchodilators * severe sepsis clinically improving-continue management per guidelines * DM type II on basal prandial insulin * Anxiety disorder on mirtazapine/lorazepam * Hypothyroidism on thyroxine * Prophylaxis heparin * full code Plan * sepsis management per guidelines * Continue noninvasive ventilation * serial chest imaging/blood gas * Pre-existing medical condition management as above
[2017-10-25] MEDS: LORazepam 2 MG/ML VIAL IV PRN ×2 (11:05→21:34)
[2017-10-25] MEDS: guaiFENesin/CODEINE 10 ML UDC PO PRN ×3 (11:17→21:34)
[2017-10-25] MEDS: HYDROcodone/APAP 5/325MG TABLET PO PRN ×2 (17:44→21:41)
[2017-10-25] MEDS: 0.9 % SODIUM CHLORIDE 1,000 ML IV SCH (17:46)
[2017-10-25] MEDS: SENNOSIDES/DOCUSATE SODIUM 1 TAB TABLET PO SCH (21:35)
[2017-10-26] MEDS: methylPREDNISolone SOD SUCC 125 MG/2 ML VIAL IV SCH ×3 (00:52→22:27)
[2017-10-26] MEDS: IPRATROPIUM/ALBUTEROL 3 ML AMPUL.NEB NEB SCH ×6 (02:45→23:01)
[2017-10-26] MEDS: guaiFENesin/CODEINE 10 ML UDC PO PRN ×2 (03:13→23:20)
[2017-10-26] MEDS: HYDROcodone/APAP 5/325MG TABLET PO PRN ×3 (04:42→22:46)
[2017-10-26 04:52] LABS: Mean Cell Volume 92.8 fL (80.0-100.0); Mean Corpuscular HGB Conc 32.8 g/dL (31.0-36.0); Mean Corpuscular Hemoglobin 30.5 pg (26.0-34.0); Platelet Count 253 K/mcL (140-440); RBC 3.74 M/mcL (4.00-5.20); Red Cell Distribution Width 14.2 % (11.5-14.5)
[2017-10-26 05:04] LABS: ALT/SGPT 34 U/l (0-40); Albumin 3.4 gm/dL (3.2-5.2); Albumin/Globulin Ratio 1.1 (1.0-2.3); Alkaline Phosphatase 61 U/L (39-117); Bilirubin,Direct < 0.2 mg/dL (0.0-0.3); Blood Urea Nitrogen 18 mg/dl (6-20); Gamma Glutamyl Transpeptidase 56 U/L (5-36); Uric Acid 3.9 mg/dL (2.5-8.0)
[2017-10-26] MEDS: 0.9 % SODIUM CHLORIDE 10 ML SYRINGE IV SCH ×3 (05:23→22:28)
--- NOTE | 2017-10-26 06:21 | XRay Report ---
INDICATION: Cough. Pneumonia. TECHNIQUE: AP chest x-ray,portable semiupright COMPARISON: Chest CT scan and chest x-ray dated 10/24/2017. Previous chest x-rays dated 10/14/2017 and 10/04/2017 FINDINGS:Bilateral pulmonary parenchymal infiltrates are improved since previous examination. Mild residual abnormality at both lung bases. No new abnormalities. Heart size and vascularity are normal. No pulmonary edema or pulmonary congestion IMPRESSION: 1. Improved infiltrates since 10/24/2017 2. Mild residual bibasilar abnormality Interpreted and Authenticated by: Harjeet Mims 10/26/17
[2017-10-26 07:34] LABS: Lymphocytes % 13 % (15-49); Monocytes % (Manual) 3 % (1-12); Platelet Estimate NORMAL (NORMAL); RBC Morphology NORMAL (NORMAL); Segmented Neutrophils % 84 % (38-78)
[2017-10-26] MEDS: BUDESONIDE 0.5 MG/2 ML AMPUL.NEB NEB SCH ×2 (07:40→21:24)
[2017-10-26] MEDS: INSULIN LISPRO 1 UNIT/0.01 ML UNIT SQ SCH ×5 (08:58→22:27)
[2017-10-26] MEDS: HEPARIN 5,000 UNIT/ML VIAL SQ SCH ×2 (08:59→22:28)
[2017-10-26] MEDS: DOCUSATE SODIUM 100 MG CAPSULE PO SCH ×2 (08:59→22:27)
[2017-10-26] MEDS: LEVOFLOXACIN 750 MG/150 ML BAG IV SCH (08:59)
--- NOTE | 2017-10-26 10:13 | Internal Med Progress Note ---
Medical - PN: Subj Patient information: Note initiated : 10/26/17 at 10:08 am Service Date, if different from initiated Date: [] Patient: Rachele Landeros a 51 y/o F admitted on 10/24/17 for Cough, Short of Breath/Bilateral Pneumonia. Chief Complaint: [] Interval history: HISTORY OF CHIEF COMPLAINT: Ms. Landeros is a 51-year-old with known history of COPD, active smoker with 54-[id number] history of smoking history who presents to [facility] ER with worsening shortness of breath. The patient has symptoms started roughly 2 weeks ago and was started on prednisone and oral antibiotic by her primary care physician, Ginny Jiménez. However, over the last 3 days the patient has had increasingproductive sputum along with increased purulence and volume andassociated shortness of breath. The patient was unable to function. The dyspnea progressed to severe shortness of breath at rest withassociation of orthopnea. She also had associated fever along withcough-induced chest pain. With worsening symptoms, the patient came [facility] Emergency Room. Initial workup was significant for whitecount over 18,000 with chest infiltrates. The patient was significantly tachycardic at 140s, RR 40 with pH 7.49, PaO2 41. Withimpending respiratory failure, the patient was started onBiPAP. The patient received steroids, antibiotics, bronchodilators, cultures and subsequently Hospitalist Service was consulted. 10/25- patient currently improved after overnight BiPAP. Blood gases improved with pH 7.4/45/149 on 19/12 I/E/50% FiO2 titrated down to 30%. Patient had frequent spells of coughing but improved hemodynamics with improved tachycardia from 140-100 ML with tachypnea from 40-22. white count down from 18,000 to 14.4. Mycoplasma IgM positive. MRSA nasal swab +. sputum culture moderate gram negative intracervical coccobacillary. continue Haemophilus coverage. October 26- patient did well overnight currently off BiPAP. On 3 L oxygen. Able to talk in full sentences. No overnight fever or chills. White count up from 14.4-20.5. persistent nonproductive cough. erratic blood sugars likely secondary to steroids. cRP 19.7. Mycoplasma positive. Transfer to medical floor. Anticipate discharge in 24-48 hours if clinically improved. Lower IV steroid dose to 60 twice a day and transition to 40 prednisone and discharged 5 days - Constitutional Vitals: Vital Signs Temp Pulse Resp BP Pulse Ox 98.4 F 72 19 113/71 100 10/26/17 07:21 10/26/17 07:21 10/26/17 07:21 10/26/17 07:01 10/26/17 07:21 Period Temp Pulse Resp BP Sys/Garrison Pulse Ox Last 24 Hr 97 F-98.4 F 68-108 16-28 78-144/43-98 87-100 Intake and Output 10/25/17 10/26/17 10/26/17 21:59 05:59 13:59 Intake Total 1185 / 1185 Output Total 600 / 600 201 / 201 Balance 1185 / 1185 -600 / -600 -201 / -201 Weight 206 lb Intake & Output: Intake & Output 10/25/17 10/26/17 10/26/17 21:59 05:59 13:59 Intake Total 1185 / 1185 Output Total 600 / 600 201 / 201 Balance 1185 / 1185 -600 / -600 -201 / -201 Weight 206 lb Intake: IV 945 / 945 Sodium Chloride 0.9% 1,000 ml @ 945 / 945 50 mls/hr IV .Q20H [facility] Rx#: [id number] Oral 240 / 240 Output: Void Amount 600 / 600 200 / 200 # of times incontinent of urine Other: Meal Lunch Percent of Meal Consumed Refused General appearance: cooperative, no acute distress Exam: alert oriented Nondistressed Minimal tachycardia rate between 9200 Nonlabored breathing Expiratory rhonchi persistent but improved since previous day Medical - PN: Obj Da - Labs CBC & Chem 7: 10/26/17 03:40 10/26/17 03:40 Labs: Abnormal Lab Results 10/26/17 10/26/17 10/25/17 03:40 03:40 03:35 WBC 20.5 H RBC 3.74 L Hgb 11.4 L Hct 34.7 L Gran % Lymph % (Auto) Gran # [place] # (Auto) Seg Neutrophils % 84 H Lymphocytes % 13 L ESR D-Dimer Chloride Anion Gap Glucose 348 H 206 H POC Glucose POC WB Ioniz Calcium Magnesium 2.6 H Total Bilirubin GGT 56 H 72 H ALT 46 H C-Reactive Protein Globulin Mycoplasma pneumon IgM 10/25/17 10/24/17 10/24/17 03:35 23:30 22:10 WBC 14.4 H RBC Hgb Hct Gran % Lymph % (Auto) Gran # [place] # (Auto) Seg Neutrophils % 87 H Lymphocytes % 7 L ESR D-Dimer Chloride Anion Gap Glucose POC Glucose POC WB Ioniz Calcium Magnesium Total Bilirubin GGT ALT C-Reactive Protein 19.7 H Globulin Mycoplasma pneumon IgM Positive A 10/24/17 10/24/17 10/24/17 22:10 19:19 19:19 WBC RBC Hgb Hct Gran % Lymph % (Auto) Gran # [place]on # (Auto) Seg Neutrophils % Lymphocytes % ESR 95 H D-Dimer 1.83 H Chloride 91 L Anion Gap 19.0 H Glucose 155 H POC Glucose 162 H POC WB Ioniz Calcium 1.06 L Magnesium Total Bilirubin 1.2 H GGT ALT 50 H C-Reactive Protein Globulin 3.9 H Mycoplasma pneumon IgM 10/24/17 19:19 WBC 18.9 H RBC Hgb Hct Gran % 79.9 H Lymph % (Auto) 13.5 L Gran # 15.1 H Dickson # (Auto) 1.1 H Seg Neutrophils % Lymphocytes % ESR D-Dimer Chloride Anion Gap Glucose POC Glucose POC WB Ioniz Calcium Magnesium Total Bilirubin GGT ALT C-Reactive Protein Globulin Mycoplasma pneumon IgM Meds: Medications Acetaminophen (Tylenol) 650 mg PO Q4-6HP PRN PRN Reason: PAIN/FEVER > 101 Hydrocodone Bitart/Acetaminophen ([place] 5/325mg) 1 tab PO Q4-6HP PRN PRN Reason: PAIN LEVEL 3-6 Last Admin: 10/26/17 04:42 Dose: 1 tab Albuterol/Ipratropium (Duoneb) 3 ml NEB Q4HRT [facility] Last Admin: 10/26/17 07:41 Dose: 3 ml Budesonide (Pulmicort) 0.5 mg NEB Q12 [facility] Last Admin: 10/26/17 07:40 Dose: 0.5 mg Dextrose (Dextrose 50%) 0 ml IV UD PRN PRN Reason: Hypoglycemia Diagnostic Test (Pha) (Accu-Chek) 1 each FS ACHS [facility] Last Admin: 10/26/17 08:58 Dose: 1 each Docusate Sodium (Colace) 100 mg PO BID [facility] Last Admin: 10/26/17 08:59 Dose: 100 mg Glucose (Insta-Glucose) 15 gm PO PRN PRN PRN Reason: Hypoglycemia Guaifenesin/Codeine Phosphate (Robitussin Ac) 10 ml PO Q4HP PRN PRN Reason: Cough Last Admin: 10/26/17 03:13 Dose: 10 ml Heparin Sodium (Porcine) (Heparin) 5,000 unit SQ Q12 [facility] Last Admin: 10/26/17 08:59 Dose: 5,000 unit Ceftriaxone Sodium 2 gm/ (Dextrose) 50 mls @ 100 mls/hr IV Q24H [facility] Last Infusion: 10/25/17 11:05 Dose: Infused Levofloxacin (Levaquin) 750 mg in 150 mls @ 100 mls/hr IV Q24H [facility] Last Admin: 10/26/17 08:59 Dose: 100 mls/hr Magnesium Sulfate (Magnesium Sulfate) 2 gm in 50 mls @ 50 mls/hr IV UD PRN PRN Reason: MG = or < 1.7 Sodium Chloride (Sodium Chloride 0.9%) 1,000 mls @ 50 mls/hr IV .Q20H [facility] Stop: 10/27/17 09:56 Last Admin: 10/25/17 17:46 Dose: 50 mls/hr Acetaminophen (Ofirmev) 1,000 mg in 100 mls @ 200 mls/hr IV Q6HP PRN PRN Reason: PAIN/FEVER > 101 Ibuprofen (Motrin) 200 mg PO Q6HP PRN PRN Reason: Pain Insulin Human Lispro (Humalog) 0 unit SQ ACHS [facility] PRN Reason: Protocol Last Admin: 10/26/17 08:58 Dose: 6 unit Lorazepam (Ativan) 0 mg IV Q4HP PRN PRN Reason: ANXIETY/SEDATION Last Admin: 10/25/17 21:34 Dose: 1 mg Methylprednisolone Sodium Succinate (Solu-Medrol) 60 mg IV Q6 [facility] Last Admin: 10/26/17 05:32 Dose: 60 mg Ondansetron HCl (Zofran) 4 mg IV Q4-6HP PRN PRN Reason: Nausea And Vomiting Potassium Chloride (Klor-Con) 40 meq PO DAILYP PRN PRN Reason: K+ < 3.5 Senna/Docusate Sodium (Senna Plus Tablet) 1 tab PO HS [facility] Last Admin: 10/25/17 21:35 Dose: 1 tab Sodium Chloride (Saline Flush) 10 ml IV Q8 [facility] Last Admin: 10/26/17 05:23 Dose: Not Given Medical - PN: A/P - Time Spent With Patient Total time spent is greater than 50% in coordination of care (as documented) at patient's floor/unit and/or counseling patient: 15 - 24 minutes - Narrative A/P Narrative: * Acute hypoxic respiratory failure- platelet improved off BiPAP. continue supplemental oxygen/bronchodilators * Community acquired pneumonia likely Haemophilus/mycoplasma,Sputum gram- negative coccobacilli-continue antibiotic coverage * COPD exacerbation secondary to above-Lower IV steroids/bronchodilators * severe sepsis clinically improving-resolved * DM type II on basal prandial insulin * Anxiety disorder on mirtazapine/lorazepam * Hypothyroidism on thyroxine * Prophylaxis heparin * full code Plan * lower IV steroids * transfer to medical floor * Pre-existing medical condition management as above
[2017-10-26] MEDS ORDERED: LORazepam 2 MG/ML VIAL IV PRN (10:37)
[2017-10-26] MEDS ORDERED: ALBUTEROL SULFATE 1 PUFF INHALER INH SCH (10:37)
[2017-10-26] MEDS ORDERED: ACETAMINOPHEN 1,000 MG/100 ML BOTTLE IV PRN (10:37)
[2017-10-26] MEDS ORDERED: POTASSIUM CHLORIDE 20 MEQ PACKET PO PRN (10:37)
[2017-10-26] MEDS ORDERED: ONDANSETRON 4 MG/2 ML VIAL IV PRN (10:37)
[2017-10-26] MEDS ORDERED: DEXTROSE 50% 50 ML VIAL IV PRN (10:37)
[2017-10-26] MEDS ORDERED: DEXTROSE 31 GM ORAL.SUSP PO PRN (10:37)
[2017-10-26] MEDS ORDERED: MAGNESIUM SULFATE 2 GM/50 ML BAG IV PRN (10:37)
[2017-10-26] MEDS ORDERED: IBUPROFEN 200 MG TABLET PO PRN (10:37)
[2017-10-26] MEDS ORDERED: ACETAMINOPHEN 325 MG TABLET PO PRN (10:37)
[2017-10-26] MEDS: cefTRIAXone 2 GM in DEXTROSE 5% IN WATER 50 ML IV SCH (10:40)
[2017-10-26] MEDS ORDERED: ALBUTEROL SULFATE 1 PUFF INHALER INH PRN (11:00)
[2017-10-26] MEDS ORDERED: BUTALB/ACETAMINOPHEN/CAFFEINE 1 TABLET PO PRN (11:12)
[2017-10-26] MEDS ORDERED: IPRATROPIUM/ALBUTEROL 3 ML AMPUL.NEB NEB ONE (15:26)
[2017-10-26] MEDS: metFORMIN 500 MG TAB.XL.24H PO SCH (17:59)
[2017-10-26] MEDS ORDERED: ALBUTEROL SULFATE 2.5 MG/3 ML NEBULIZER ONE (20:30)
[2017-10-26] MEDS: NORTRIPTYLINE 25 MG CAPSULE PO SCH (22:25)
[2017-10-26] MEDS: LORazepam 0.5 MG TABLET PO SCH (22:25)
[2017-10-26] MEDS: SENNOSIDES/DOCUSATE SODIUM 1 TAB TABLET PO SCH (22:25)
[2017-10-26] MEDS: ATORVASTATIN 20 MG TABLET PO SCH (22:26)
[2017-10-26] MEDS: INSULIN GLARGINE, HUMAN 1 UNIT/0.01 ML SQ SCH (22:27)
[2017-10-27] MEDS: IPRATROPIUM/ALBUTEROL 3 ML AMPUL.NEB NEB SCH ×6 (02:26→23:01)
[2017-10-27 05:26] LABS: Mean Cell Volume 91.7 fL (80.0-100.0); Mean Corpuscular HGB Conc 33.1 g/dL (31.0-36.0); Mean Corpuscular Hemoglobin 30.4 pg (26.0-34.0); Platelet Count 240 K/mcL (140-440); RBC 3.73 M/mcL (4.00-5.20); Red Cell Distribution Width 14.4 % (11.5-14.5)
[2017-10-27 05:36] LABS: ALT/SGPT 31 U/l (0-40); Albumin 3.4 gm/dL (3.2-5.2); Albumin/Globulin Ratio 1.1 (1.0-2.3); Alkaline Phosphatase 60 U/L (39-117); Bilirubin,Direct < 0.2 mg/dL (0.0-0.3); Blood Urea Nitrogen 20 mg/dl (6-20); Gamma Glutamyl Transpeptidase 50 U/L (5-36); Uric Acid 3.9 mg/dL (2.5-8.0)
[2017-10-27 06:10] LABS: Band Neutrophils % 5 % (0-10); Lymphocytes % 12 % (15-49); Monocytes % (Manual) 2 % (1-12); Platelet Estimate NORMAL (NORMAL); RBC Morphology NORMAL (NORMAL); Segmented Neutrophils % 81 % (38-78)
[2017-10-27] MEDS: BUDESONIDE 0.5 MG/2 ML AMPUL.NEB NEB SCH ×2 (07:25→19:09)
[2017-10-27] MEDS: PANTOPRAZOLE 40 MG TABLET PO SCH (08:15)
[2017-10-27] MEDS: metFORMIN 500 MG TAB.XL.24H PO SCH ×2 (08:15→17:02)
[2017-10-27] MEDS: LEVOTHYROXINE 125 MCG TABLET PO SCH (08:15)
[2017-10-27] MEDS: 0.9 % SODIUM CHLORIDE 10 ML SYRINGE IV SCH ×3 (08:23→20:54)
[2017-10-27] MEDS: INSULIN LISPRO 1 UNIT/0.01 ML UNIT SQ SCH ×4 (08:23→20:55)
--- NOTE | 2017-10-27 08:30 | Internal Med Progress Note ---
Medical - PN: Subj Patient information: Note initiated : 10/27/17 at 8:24 am Service Date, if different from initiated Date: [] Patient: Rachele Landeros a 51 y/o F admitted on 10/24/17 for Cough, Short of Breath/Bilateral Pneumonia. Chief Complaint: [] Interval history: HISTORY OF CHIEF COMPLAINT: Ms. Landeros is a 51-year-old with known history of COPD, active smoker with [id number] history of smoking history who presents to [facility] ER with worsening shortness of breath. The patient has symptoms started roughly 2 weeks ago and was started on prednisone and oral antibiotic by her primary care physician, Ginny Jiménez. However, over the last 3 days the patient has had increasingproductive sputum along with increased purulence and volume andassociated shortness of breath. The patient was unable to function. The dyspnea progressed to severe shortness of breath at rest withassociation of orthopnea. She also had associated fever along withcough-induced chest pain. With worsening symptoms, the patient came [facility]. Initial workup was significant for whitecount over 18,000 with chest infiltrates. The patient was significantly tachycardic at 140s, RR 40 with pH 7.49, PaO2 41. Withimpending respiratory failure, the patient was started onBiPAP. The patient received steroids, antibiotics, bronchodilators, cultures and subsequently Hospitalist Service was consulted. 10/25- patient currently improved after overnight BiPAP. Blood gases improved with pH 7.4/45/149 on 19/12 I/E/50% FiO2 titrated down to 30%. Patient had frequent spells of coughing but improved hemodynamics with improved tachycardia from 140-100 ML with tachypnea from 40-22. white count down from 18,000 to 14.4. Mycoplasma IgM positive. MRSA nasal swab +. sputum culture moderate gram negative intracervical coccobacillary. continue Haemophilus coverage. October 26- patient did well overnight currently off BiPAP. On 3 L oxygen. Able to talk in full sentences. No overnight fever or chills. White count up from 14.4-20.5. persistent nonproductive cough. erratic blood sugars likely secondary to steroids. cRP 19.7. Mycoplasma positive. Transfer to medical floor. Anticipate discharge in 24-48 hours if clinically improved. Lower IV steroid dose to 60 twice a day and transition to 40 prednisone and discharged 5 days October 27-patient seen in room. On 4 L oxygen. Feels better than previous day. However not quite baseline. Still labored breathing. On steroids/ antibiotics. White count downtrending at 17.6. on levofloxacin. lower steroids to twice daily - Constitutional Vitals: Vital Signs Temp Pulse Resp BP Pulse Ox 97.3 F 86 18 125/78 93 10/27/17 06:43 10/27/17 07:25 10/27/17 07:25 10/27/17 06:43 10/27/17 07:25 Period Temp Pulse Resp BP Sys/Garrison Pulse Ox Last 24 Hr 97.1 F-98.6 F 76-98 16-20 110-132/62-88 93-96 Intake and Output 10/26/17 10/27/17 10/27/17 21:59 05:59 13:59 Intake Total 360 / 360 580 / 580 Output Total 100 / 100 Balance 260 / 260 580 / 580 Weight 209 lb Intake & Output: Intake & Output 10/26/17 10/27/17 10/27/17 21:59 05:59 13:59 Intake Total 360 / 360 580 / 580 Output Total 100 / 100 Balance 260 / 260 580 / 580 Weight 209 lb Intake: Oral 360 / 360 580 / 580 Output: Void Amount 100 / 100 Other: Meal Ice cream Percent of Meal Consumed 100% Feeding Ability Independent # Voids 1 General appearance: cooperative, no acute distress Exam: alert oriented minimally labored breathing Rhonchi No anxiety Medical - PN: Obj Da - Labs CBC & Chem 7: 10/27/17 04:20 10/27/17 04:20 Labs: Abnormal Lab Results 10/27/17 10/27/17 10/26/17 04:20 04:20 03:40 WBC 17.6 H RBC 3.73 L Hgb 11.4 L Hct 34.2 L Gran % Lymph % (Auto) Gran # Hardin # (Auto) Seg Neutrophils % 81 H Lymphocytes % 12 L ESR D-Dimer Chloride Anion Gap Glucose 299 H 348 H POC Glucose POC WB Ioniz Calcium Magnesium Total Bilirubin GGT 50 H 56 H ALT C-Reactive Protein Globulin Triglycerides 151 H Mycoplasma pneumon IgM 10/26/17 10/25/17 10/25/17 03:40 03:35 03:35 WBC 20.5 H 14.4 H RBC 3.74 L Hgb 11.4 L Hct 34.7 L Gran % Lymph % (Auto) Gran # Hardin # (Auto) Seg Neutrophils % 84 H 87 H Lymphocytes % 13 L 7 L ESR D-Dimer Chloride Anion Gap Glucose 206 H POC Glucose POC WB Ioniz Calcium Magnesium 2.6 H Total Bilirubin GGT 72 H ALT 46 H C-Reactive Protein Globulin Triglycerides Mycoplasma pneumon IgM 10/24/17 10/24/17 10/24/17 23:30 22:10 22:10 WBC RBC Hgb Hct Gran % Lymph % (Auto) Gran # Hardin # (Auto) Seg Neutrophils % Lymphocytes % ESR 95 H D-Dimer Chloride Anion Gap Glucose POC Glucose POC WB Ioniz Calcium Magnesium Total Bilirubin GGT ALT C-Reactive Protein 19.7 H Globulin Triglycerides Mycoplasma pneumon IgM Positive A 10/24/17 10/24/17 10/24/17 19:19 19:19 19:19 WBC 18.9 H RBC Hgb Hct Gran % 79.9 H Lymph % (Auto) 13.5 L Gran # 15.1 H Hardin # (Auto) 1.1 H Seg Neutrophils % Lymphocytes % ESR D-Dimer 1.83 H Chloride 91 L Anion Gap 19.0 H Glucose 155 H POC Glucose 162 H POC WB Ioniz Calcium 1.06 L Magnesium Total Bilirubin 1.2 H GGT ALT 50 H C-Reactive Protein Globulin 3.9 H Triglycerides Mycoplasma pneumon IgM Meds: Medications Acetaminophen (Tylenol) 650 mg PO Q4-6HP PRN PRN Reason: PAIN/FEVER > 101 Acetaminophen/Butalbital/Caffeine (Fioricet) 1 tab PO Q4HP PRN PRN Reason: Headache Last Admin: 10/26/17 12:21 Dose: 1 tab Hydrocodone Bitart/Acetaminophen ([place] 5/325mg) 1 tab PO Q4-6HP PRN PRN Reason: PAIN LEVEL 3-6 Last Admin: 10/26/17 22:46 Dose: 1 tab Albuterol Sulfate (Ventolin) 2 puff INH Q4HP PRN PRN Reason: Shortness Of Breath Albuterol/Ipratropium (Duoneb) 3 ml NEB Q4HRT [place] Last Admin: 10/27/17 07:24 Dose: 3 ml Atorvastatin Calcium (Lipitor) 10 mg PO HS [facility] Last Admin: 10/26/17 22:26 Dose: 10 mg Budesonide (Pulmicort) 0.5 mg NEB Q12 [facility] Last Admin: 10/27/17 07:25 Dose: 0.5 mg Dextrose (Dextrose 50%) 0 ml IV UD PRN PRN Reason: Hypoglycemia Diagnostic Test (Pha) (Accu-Chek) 1 each FS ACHS [facility] Last Admin: 10/27/17 08:16 Dose: 1 each Docusate Sodium (Colace) 100 mg PO BID [facility] Last Admin: 10/26/17 22:27 Dose: 100 mg Glucose (Insta-Glucose) 15 gm PO PRN PRN PRN Reason: Hypoglycemia Guaifenesin/Codeine Phosphate (Robitussin Ac) 10 ml PO Q4HP PRN PRN Reason: Cough Last Admin: 10/26/17 23:20 Dose: 10 ml Heparin Sodium (Porcine) (Heparin) 5,000 unit SQ Q12 [facility] Last Admin: 10/26/17 22:28 Dose: 5,000 unit Levofloxacin (Levaquin) 750 mg in 150 mls @ 100 mls/hr IV Q24H [facility] Magnesium Sulfate (Magnesium Sulfate) 2 gm in 50 mls @ 50 mls/hr IV UD PRN PRN Reason: MG = or < 1.7 Acetaminophen (Ofirmev) 1,000 mg in 100 mls @ 200 mls/hr IV Q6HP PRN PRN Reason: PAIN/FEVER > 101 Ibuprofen (Motrin) 200 mg PO Q6HP PRN PRN Reason: Pain Insulin Glargine (Lantus) 22 unit SQ BID [facility] Last Admin: 10/26/17 22:27 Dose: 22 unit Insulin Human Lispro (Humalog) 0 unit SQ [facility] PRN Reason: Protocol Last Admin: 10/27/17 08:23 Dose: 4 unit Levothyroxine Sodium (Synthroid) 125 mcg PO QAMAC [facility] Last Admin: 10/27/17 08:15 Dose: 125 mcg Lorazepam (Ativan) 0 mg IV Q4HP PRN PRN Reason: ANXIETY/SEDATION Last Admin: 10/27/17 02:26 Dose: 0.5 mg Lorazepam (Ativan) 1 mg PO DAILY [facility] Lorazepam (Ativan) 0.5 mg PO HS [facility] Last Admin: 10/26/17 22:25 Dose: 0.5 mg Metformin HCl (Glucophage) 500 mg PO BIDCC [facility] Last Admin: 10/27/17 08:15 Dose: 500 mg Methylprednisolone Sodium Succinate (Solu-Medrol) 60 mg IV Q12 [facility] Last Admin: 10/26/17 22:27 Dose: 60 mg Nortriptyline HCl (Pamelor) 25 mg PO HS [facility] Last Admin: 10/26/17 22:25 Dose: 25 mg Ondansetron HCl (Zofran) 4 mg IV Q4-6HP PRN PRN Reason: Nausea And Vomiting Pantoprazole Sodium (Protonix) 40 mg PO QAMAC [facility] Last Admin: 10/27/17 08:15 Dose: 40 mg Potassium Chloride (Klor-Con) 40 meq PO DAILYP PRN PRN Reason: K+ < 3.5 Senna/Docusate Sodium (Senna Plus Tablet) 1 tab PO [facility] Last Admin: 10/26/17 22:25 Dose: 1 tab Sodium Chloride (Saline Flush) 10 ml IV Q8 [facility] Last Admin: 10/27/17 08:23 Dose: 10 ml Medical - PN: A/P - Time Spent With Patient Total time spent is greater than 50% in coordination of care (as documented) at patient's floor/unit and/or counseling patient: 25 - 35 minutes - Narrative A/P Narrative: * Acute hypoxic respiratory failure- off BiPAP. on 4 L oxygen. Close to baseline 2.5 home oxygen. continuebronchodilators * Community acquired pneumonia likely Haemophilus/mycoplasma,Sputum gram- negative coccobacilli-continue antibiotic coverageon Levaquin * COPD exacerbation secondary to above-IV steroids/bronchodilators * severe sepsis clinically improving-resolved * DM type II on basal prandial insulin * Anxiety disorder on mirtazapine/lorazepam * Hypothyroidism on thyroxine * Prophylaxis heparin * full code Plan * Current discharge bronchodilators * transfer to medical floor * Pre-existing medical condition management as above * ossible discharge in 24-48 hours if clinically improving
[2017-10-27] MEDS: INSULIN GLARGINE, HUMAN 1 UNIT/0.01 ML SQ SCH ×2 (08:59→20:56)
[2017-10-27] MEDS: LEVOFLOXACIN 750 MG/150 ML BAG IV SCH (09:30)
[2017-10-27] MEDS: DOCUSATE SODIUM 100 MG CAPSULE PO SCH ×2 (09:30→20:55)
[2017-10-27] MEDS: methylPREDNISolone SOD SUCC 125 MG/2 ML VIAL IV SCH ×2 (09:30→20:54)
[2017-10-27] MEDS: LORazepam 1 MG TABLET PO SCH (09:30)
[2017-10-27] MEDS: HEPARIN 5,000 UNIT/ML VIAL SQ SCH ×2 (09:30→20:55)
[2017-10-27] MEDS: HYDROcodone/APAP 5/325MG TABLET PO PRN (18:47)
[2017-10-27] MEDS: guaiFENesin/CODEINE 10 ML UDC PO PRN (20:54)
[2017-10-27] MEDS: NORTRIPTYLINE 25 MG CAPSULE PO SCH (20:55)
[2017-10-27] MEDS: SENNOSIDES/DOCUSATE SODIUM 1 TAB TABLET PO SCH (20:55)
[2017-10-27] MEDS: LORazepam 0.5 MG TABLET PO SCH (20:55)
[2017-10-27] MEDS: ATORVASTATIN 20 MG TABLET PO SCH (20:55)
[2017-10-28] MEDS: IPRATROPIUM/ALBUTEROL 3 ML AMPUL.NEB NEB SCH ×6 (03:34→23:11)
[2017-10-28] MEDS: 0.9 % SODIUM CHLORIDE 10 ML SYRINGE IV SCH ×2 (04:41→12:07)
[2017-10-28 06:06] LABS: Basophils # (Auto) 0 K/mcL (0.0-0.3); Basophils % (Auto) 0.2 % (0.0-2.0); Eosinophils # (Auto) 0.3 K/mcL (0.0-0.7); Eosinophils % (Auto) 2.5 % (0.0-7.0); Granulocytes % (Auto) 71.2 % (38.0-78.0); Lymphocytes # (Auto) 2.4 K/mcL (1.5-4.8); Lymphocytes % (Auto) 21.9 % (15.5-49.0); Mean Cell Volume 91.9 fL (80.0-100.0); Mean Corpuscular HGB Conc 33.3 g/dL (31.0-36.0); Mean Corpuscular Hemoglobin 30.6 pg (26.0-34.0); Monocytes # (Auto) 0.5 K/mcL (0.1-0.9); Monocytes % (Auto) 4.2 % (1.0-12.0); Platelet Count 240 K/mcL (140-440); Red Cell Distribution Width 14.1 % (11.5-14.5)
[2017-10-28 06:37] LABS: ALT/SGPT 32 U/l (0-40); Albumin 3.5 gm/dL (3.2-5.2); Albumin/Globulin Ratio 1.3 (1.0-2.3); Alkaline Phosphatase 54 U/L (39-117); Bilirubin,Direct < 0.2 mg/dL (0.0-0.3); Blood Urea Nitrogen 16 mg/dl (6-20); Gamma Glutamyl Transpeptidase 53 U/L (5-36); Uric Acid 3.4 mg/dL (2.5-8.0)
[2017-10-28] MEDS: BUDESONIDE 0.5 MG/2 ML AMPUL.NEB NEB SCH ×2 (07:36→19:08)
[2017-10-28] MEDS: PANTOPRAZOLE 40 MG TABLET PO SCH (07:43)
[2017-10-28] MEDS: LEVOTHYROXINE 125 MCG TABLET PO SCH (07:43)
[2017-10-28] MEDS: INSULIN LISPRO 1 UNIT/0.01 ML UNIT SQ SCH ×4 (07:54→20:42)
[2017-10-28] MEDS: metFORMIN 500 MG TAB.XL.24H PO SCH ×2 (07:55→17:09)
[2017-10-28] MEDS: HYDROcodone/APAP 5/325MG TABLET PO PRN ×3 (10:43→20:43)
[2017-10-28] MEDS: methylPREDNISolone SOD SUCC 125 MG/2 ML VIAL IV SCH (10:44)
[2017-10-28] MEDS: LORazepam 1 MG TABLET PO SCH (10:44)
[2017-10-28] MEDS: INSULIN GLARGINE, HUMAN 1 UNIT/0.01 ML SQ SCH ×2 (10:44→20:44)
[2017-10-28] MEDS: HEPARIN 5,000 UNIT/ML VIAL SQ SCH ×2 (10:44→20:42)
[2017-10-28] MEDS: DOCUSATE SODIUM 100 MG CAPSULE PO SCH ×3 (10:44→20:51)
[2017-10-28] MEDS: LEVOFLOXACIN 750 MG/150 ML BAG IV SCH (11:06)
--- NOTE | 2017-10-28 12:42 | Internal Med Progress Note ---
Medical - PN: Subj Patient information: Note initiated : 10/28/17 at 12:35 pm Service Date, if different from initiated Date: [] Patient: Rachele Landeros a 51 y/o F admitted on 10/24/17 for Cough, Short of Breath/Bilateral Pneumonia. Chief Complaint: [] Interval history: HISTORY OF CHIEF COMPLAINT: Ms. Landeros is a 51-year-old with known history of COPD, active smoker with [id number] history of smoking history who presents to [facility] ER with worsening shortness of breath. The patient has symptoms started roughly 2 weeks ago and was started on prednisone and oral antibiotic by her primary care physician, Ginny Jiménez. However, over the last 3 days the patient has had increasingproductive sputum along with increased purulence and volume andassociated shortness of breath. The patient was unable to function. The dyspnea progressed to severe shortness of breath at rest withassociation of orthopnea. She also had associated fever along withcough-induced chest pain. With worsening symptoms, the patient came [facility] Room. Initial workup was significant for whitecount over 18,000 with chest infiltrates. The patient was significantly tachycardic at 140s, RR 40 with pH 7.49, PaO2 41. Withimpending respiratory failure, the patient was started onBiPAP. The patient received steroids, antibiotics, bronchodilators, cultures and subsequently Hospitalist Service was consulted. 10/25- patient currently improved after overnight BiPAP. Blood gases improved with pH 7.4/45/149 on 19/12 I/E/50% FiO2 titrated down to 30%. Patient had frequent spells of coughing but improved hemodynamics with improved tachycardia from 140-100 ML with tachypnea from 40-22. white count down from 18,000 to 14.4. Mycoplasma IgM positive. MRSA nasal swab +. sputum culture moderate gram negative intracervical coccobacillary. continue Haemophilus coverage. October 26- patient did well overnight currently off BiPAP. On 3 L oxygen. Able to talk in full sentences. No overnight fever or chills. White count up from 14.4-20.5. persistent nonproductive cough. erratic blood sugars likely secondary to steroids. cRP 19.7. Mycoplasma positive. Transfer to medical floor. Anticipate discharge in 24-48 hours if clinically improved. Lower IV steroid dose to 60 twice a day and transition to 40 prednisone and discharged 5 days October 27-patient seen in room. On 4 L oxygen. Feels better than previous day. However not quite baseline. Still labored breathing. On steroids/ antibiotics. White count downtrending at 17.6. on levofloxacin. lower steroids to twice daily October 28 Patient seen and examined, sitting comfortably in the bed, she is able to ambulate in the room without much distress today. She feels much better compared to yesterday. She is on steroids and antibiotics. WBC count is trending down, patient will be switched from IV to oral steroids starting tomorrow. She still on oxygen was on 4 L this morning, will try to wean her off as possible. She does use oxygen at home. Pertinent ROS: Denies headache, dizziness Denies chest pain, palpitations Improving cough or shortness of breath Denies abdominal pain, nausea or vomiting. - Constitutional Vitals: Vital Signs Temp Pulse Resp BP Pulse Ox 97.5 F 78 16 98/64 95 10/28/17 12:00 10/28/17 11:16 10/28/17 12:00 10/28/17 12:00 10/28/17 12:00 Period Temp Pulse Resp BP Sys/Garrison Pulse Ox Last 24 Hr 96.8 F-97.9 F 78-104 16-20 98-142/64-88 91-98 Intake and Output 10/27/17 10/28/17 10/28/17 21:59 05:59 13:59 Intake Total 400 / 400 Output Total 250 / 250 800 / 800 1200 / 1200 Balance -250 / -250 -400 / -400 -1200 / -1200 Weight 212 lb Intake & Output: Intake & Output 10/27/17 10/28/17 10/28/17 21:59 05:59 13:59 Intake Total 400 / 400 Output Total 250 / 250 800 / 800 1200 / 1200 Balance -250 / -250 -400 / -400 -1200 / -1200 Weight 212 lb Intake: Oral 400 / 400 Output: Void Amount 250 / 250 800 / 800 1200 / 1200 Other: Meal Dinner Percent of Meal Consumed 75% Feeding Ability Independent Stool Size Moderate Stool Color Brown Stool Consistency Soft Formed # Bowel Movements 1 Exam: Constitutional; Afebrile, cooperative, alert, not in distress. Eyes- No icterus, , No periorbital swelling Ears- Ext ear normal, hearing normal to conversation. Neck- Midline trachea, supple Respiratory system: Air Entry equal on both sides, prolonged expiratory phase, bilateral expiratory wheezes, no use of accessory muscles, speaking full sentences. CVS- Rate rhythm regular, S1,S2 heard, no gallop, no rub. Abdomen- Soft nontender abdomen, no organomegaly, no tenderness, no guarding or rigidity, [employer]- AOOx3, moving all extremities, no gross focal deficit noted. Medical - PN: Obj Da - Labs CBC & Chem 7: 10/28/17 04:30 10/28/17 04:30 Labs: Abnormal Lab Results 10/28/17 10/28/17 10/27/17 04:30 04:30 04:20 WBC RBC 3.70 L Hgb 11.3 L Hct 34.0 L Seg Neutrophils % Lymphocytes % Glucose 273 H 299 H GGT 53 H 50 H Triglycerides 151 H 10/27/17 10/26/17 10/26/17 04:20 03:40 03:40 WBC 17.6 H 20.5 H RBC 3.73 L 3.74 L Hgb 11.4 L 11.4 L Hct 34.2 L 34.7 L Seg Neutrophils % 81 H 84 H Lymphocytes % 12 L 13 L Glucose 348 H GGT 56 H Triglycerides Meds: Medications Acetaminophen (Tylenol) 650 mg PO Q4-6HP PRN PRN Reason: PAIN/FEVER > 101 Acetaminophen/Butalbital/Caffeine (Fioricet) 1 tab PO Q4HP PRN PRN Reason: Headache Last Admin: 10/26/17 12:21 Dose: 1 tab Hydrocodone Bitart/Acetaminophen ([place] 5/325mg) 1 tab PO Q4-6HP PRN PRN Reason: PAIN LEVEL 3-6 Last Admin: 10/28/17 10:43 Dose: 1 tab Albuterol Sulfate (Ventolin) 2 puff INH Q4HP PRN PRN Reason: Shortness Of Breath Albuterol/Ipratropium (Duoneb) 3 ml NEB Q4HRT [facility] Last Admin: 10/28/17 11:15 Dose: 3 ml Atorvastatin Calcium (Lipitor) 10 mg PO HS [facility] Last Admin: 10/27/17 20:55 Dose: 10 mg Budesonide (Pulmicort) 0.5 mg NEB Q12 [facility] Last Admin: 10/28/17 07:36 Dose: 0.5 mg Dextrose (Dextrose 50%) 0 ml IV UD PRN PRN Reason: Hypoglycemia Diagnostic Test (Pha) (Accu-Chek) 1 each FS ACHS [facility] Last Admin: 10/28/17 11:10 Dose: 1 each Docusate Sodium (Colace) 100 mg PO BID [facility] Last Admin: 10/28/17 10:44 Dose: 100 mg Glucose (Insta-Glucose) 15 gm PO PRN PRN PRN Reason: Hypoglycemia Guaifenesin/Codeine Phosphate (Robitussin Ac) 10 ml PO Q4HP PRN PRN Reason: Cough Last Admin: 10/27/17 20:54 Dose: 10 ml Heparin Sodium (Porcine) (Heparin) 5,000 unit SQ Q12 [facility] Last Admin: 10/28/17 10:44 Dose: 5,000 unit Levofloxacin (Levaquin) 750 mg in 150 mls @ 100 mls/hr IV Q24H [facility] Last Admin: 10/28/17 11:06 Dose: 100 mls/hr Magnesium Sulfate (Magnesium Sulfate) 2 gm in 50 mls @ 50 mls/hr IV UD PRN PRN Reason: MG = or < 1.7 Acetaminophen (Ofirmev) 1,000 mg in 100 mls @ 200 mls/hr IV Q6HP PRN PRN Reason: PAIN/FEVER > 101 Ibuprofen (Motrin) 200 mg PO Q6HP PRN PRN Reason: Pain Insulin Glargine (Lantus) 22 unit SQ BID [facility] Last Admin: 10/28/17 10:44 Dose: 22 unit Insulin Human Lispro (Humalog) 0 unit SQ [facility] PRN Reason: Protocol Last Admin: 10/28/17 12:06 Dose: 3 unit Levothyroxine Sodium (Synthroid) 125 mcg PO QAMAC [facility] Last Admin: 10/28/17 07:43 Dose: 125 mcg Lorazepam (Ativan) 0 mg IV Q4HP PRN PRN Reason: ANXIETY/SEDATION Last Admin: 10/27/17 02:26 Dose: 0.5 mg Lorazepam (Ativan) 1 mg PO DAILY [facility] Last Admin: 10/28/17 10:44 Dose: 1 mg Lorazepam (Ativan) 0.5 mg PO HS [facility] Last Admin: 10/27/17 20:55 Dose: 0.5 mg Metformin HCl (Glucophage) 500 mg PO BIDCC [facility] Last Admin: 10/28/17 07:55 Dose: 500 mg Nortriptyline HCl (Pamelor) 25 mg PO [facility] Last Admin: 10/27/17 20:55 Dose: 25 mg Ondansetron HCl (Zofran) 4 mg IV Q4-6HP PRN PRN Reason: Nausea And Vomiting Pantoprazole [facility] ([facility]ix) [facility] Last Admin: 10/28/17 07:43 Dose: 40 mg Potassium Chloride (Klor-Con) 40 meq PO DAILYP PRN PRN Reason: K+ < 3.5 Prednisone (Prednisone) 40 mg PO [facility] Senna/Docusate Sodium (Senna Plus Tablet) 1 tab PO [facility] Last Admin: 10/27/17 20:55 Dose: 1 tab Sodium Chloride (Saline Flush) 10 ml IV Q8 [facility] Last Admin: 10/28/17 12:07 Dose: 10 ml Medical - PN: A/P - Time Spent With Patient Total time spent is greater than 50% in coordination of care (as documented) at patient's floor/unit and/or counseling patient: - Narrative A/P Narrative: A/P Acute hypoxic respiratory failure: Patient is off BiPAP, on 4 L of oxygen right now, titrate down to her home requirements which is approximately 2.5 L. Acute COPD exacerbation: Continue bronchodilators and steroids change IV to oral steroids, patient is still wheezing but clinically improving Sever sepsis-clinically improving nearly resolved Mycoplasma pneumonia-on levofloxacin continue same patient is improving will need 10-14 days of antibiotics Diabetes type 2 with hyperglycemia, glucose slightly above goal on sliding scale and prandial insulin continue same. Anxiety disorder on lorazepam and mirtazapine continue same, Hypothyroidism on levothyroxine. Heparin for DVT prophylaxis Patient is full code
[2017-10-28] MEDS: NORTRIPTYLINE 25 MG CAPSULE PO SCH (20:43)
[2017-10-28] MEDS: SENNOSIDES/DOCUSATE SODIUM 1 TAB TABLET PO SCH ×2 (20:43→20:51)
[2017-10-28] MEDS: ATORVASTATIN 20 MG TABLET PO SCH (20:44)
[2017-10-28] MEDS: LORazepam 0.5 MG TABLET PO SCH (20:44)
[2017-10-29] MEDS: IPRATROPIUM/ALBUTEROL 3 ML AMPUL.NEB NEB SCH ×3 (04:05→10:20)
[2017-10-29 06:02] LABS: Basophils # (Auto) 0 K/mcL (0.0-0.3); Basophils % (Auto) 0.3 % (0.0-2.0); Eosinophils # (Auto) 0.3 K/mcL (0.0-0.7); Eosinophils % (Auto) 1.9 % (0.0-7.0); Granulocytes % (Auto) 53.8 % (38.0-78.0); Lymphocytes # (Auto) 5.3 K/mcL (1.5-4.8); Lymphocytes % (Auto) 38.9 % (15.5-49.0); Mean Cell Volume 91.7 fL (80.0-100.0); Mean Corpuscular HGB Conc 33.1 g/dL (31.0-36.0); Mean Corpuscular Hemoglobin 30.4 pg (26.0-34.0); Monocytes # (Auto) 0.7 K/mcL (0.1-0.9); Monocytes % (Auto) 5.1 % (1.0-12.0); Platelet Count 255 K/mcL (140-440); RBC 3.86 M/mcL (4.00-5.20); Red Cell Distribution Width 13.9 % (11.5-14.5)
[2017-10-29 06:21] LABS: ALT/SGPT 47 U/l (0-40); Albumin 3.4 gm/dL (3.2-5.2); Albumin/Globulin Ratio 1.3 (1.0-2.3); Alkaline Phosphatase 55 U/L (39-117); Bilirubin,Direct < 0.2 mg/dL (0.0-0.3); Blood Urea Nitrogen 19 mg/dl (6-20); Gamma Glutamyl Transpeptidase 55 U/L (5-36); Uric Acid 3.9 mg/dL (2.5-8.0)
[2017-10-29] MEDS ORDERED: ACETAMINOPHEN 325 MG TABLET PO PRN (07:17)
[2017-10-29] MEDS: PANTOPRAZOLE 40 MG TABLET PO SCH (07:20)
[2017-10-29] MEDS: LEVOTHYROXINE 125 MCG TABLET PO SCH (07:20)
[2017-10-29] MEDS: BUDESONIDE 0.5 MG/2 ML AMPUL.NEB NEB SCH (07:28)
[2017-10-29] MEDS: INSULIN LISPRO 1 UNIT/0.01 ML UNIT SQ SCH ×2 (07:33→11:42)
[2017-10-29] MEDS ORDERED: predniSONE 20 MG TABLET PO SCH (08:00)
[2017-10-29] MEDS: LORazepam 1 MG TABLET PO SCH (10:13)
[2017-10-29] MEDS: metFORMIN 500 MG TAB.XL.24H PO SCH (10:13)
[2017-10-29] MEDS: LEVOFLOXACIN 750 MG/150 ML BAG IV SCH (10:13)
[2017-10-29] MEDS: DOCUSATE SODIUM 100 MG CAPSULE PO SCH (10:14)
[2017-10-29] MEDS: HEPARIN 5,000 UNIT/ML VIAL SQ SCH (10:14)
--- NOTE | 2017-10-29 11:17 | Discharge Summary ---
Medical - DS: Prov Patient information: Note initiated : 10/29/17 at 11:11 am Service Date, if different from initiated Date: [] Patient: Rachele Landeros 51 y/o F admitted on 10/24/17 for Cough, Short of Breath/Bilateral Pneumonia. Chief Complaint: [] Date of admission: 10/24/17 21:56 Discharge date: 10/29/17 Primary care physician: Ginny Jiménez DO Admitting clinician: Erin Padilla Consults: 10/24/17 19:38 Consult to Physician [CONS] Stat Comment: Consulting Provider: Juan Diego Crabtree Reason For Exam: Physician to Consult Discharging clinician: Erin Padilla Medical - DS: Meds - Discharge Medications Prescriptions: Levofloxacin [Levaquin] 750 mg PO DAILY #5 tab predniSONE [Prednisone] 10 mg PO DAILY #24 tab Active and Home Medications: Home Medications Ondansetron HCl [Zofran ODT] 4 mg SL Q4-6HP PRN #10 tab 04/27/17 [Rx Confirmed 10/26/17 Last Taken 10/23/17] ipratropium-albuterol 0.5 mg-3 mg(2.5 mg base)/3 mL nebulization soln 3 ml INHALATION Q8H #3 ml 06/30/17 [Rx Confirmed 10/26/17 Last Taken 10/24/17] lorazepam 1 mg tablet 1 mg PO .COMPLEX #45 tab 07/03/17 [Rx Confirmed 10/26/17 Last Taken 10/24/17] levothyroxine 125 mcg tablet 125 mcg PO QDAY #30 tab 07/19/17 [Rx Confirmed Last Taken 10/24/17] nortriptyline 25 mg capsule 25 mg PO HS cap 08/16/17 [History Confirmed Last Taken 10/23/17] lansoprazole 30 mg capsule,delayed release 30 mg PO QDAY #30 cap 08/28/17 [Rx Confirmed 10/26/17 Last Taken 10/24/17] insulin glargine (U-100) 100 unit/mL subcutaneous solution 22 unit SUB-Q BID # 10 ml 09/21/17 [Rx Confirmed 10/26/17 Last Taken 10/24/17] albuterol sulfate HFA 90 mcg/actuation aerosol inhaler 2 puff INHALATION Q4H # 18 g 10/12/17 [Rx Confirmed 10/26/17 Last Taken 10/24/17] predniSONE [Prednisone] 10 mg PO QAC #30 tab 10/15/17 [Rx Confirmed 10/26/17 Last Taken 10/24/17] Atorvastatin [Lipitor] 10 mg PO HS 10/26/17 [History Confirmed 10/26/17 Last Taken 10/24/17] Suvorexant [Belsomra] 15 mg PO HS 10/26/17 [History Confirmed 10/26/17 Last Taken 10/23/17] butalbital 50 mg-acetaminophen 300 mg-caffeine 40 mg-codeine 30 mg cap 1 cap PO Q4H PRN 10/26/17 [History Confirmed 10/26/17 Last Taken 10/24/17] metFORMIN HCL [Glucophage Xr] 500 mg PO BID 10/26/17 [History Confirmed Last Taken 10/23/17] predniSONE [Prednisone] 10 mg PO .COMPLEX 10/26/17 [History Confirmed 10/26/17 Last Taken 10/24/17] Medical - DS: Hosp Hospital course: Ms. Landeros is a 51-year-old with known history of COPD, active smoker with 50- pack-year history of smoking history who presented to [facility] ER with worsening shortness of breath. The patient has symptoms started roughly 2 weeks ago and was started on prednisone and oral antibiotic by her primary care physician, Ginny Jiménez. However, over the 3 days prior to hospitalization the patient has had increasing productive sputum along with increased purulence and volume and associated shortness of breath. The dyspnea progressed to severe shortness of breath at rest with association of orthopnea. She also had associated fever along with cough-induced chest pain. [facility] worsening [facility] Initial workup was significant for white count over 18,000 with chest infiltrates. The patient was significantly tachycardic at 140s, RR 40 with pH 7.49, PaO2 41. With impending respiratory failure, the patient was started on BiPAP. The patient received steroids, antibiotics, bronchodilators, cultures and subsequently Hospitalist Service was consulted. 10/25- patient currently improved after overnight BiPAP. Blood gases improved with pH 7.4/45/149 on 19/12 I/E/50% FiO2 titrated down to 30%. Patient had frequent spells of coughing but improved hemodynamics with improved tachycardia from 140-100 ML with tachypnea from 40-22. white count down from 18,000 to 14.4. Mycoplasma IgM positive. MRSA nasal swab +. sputum culture moderate gram negative intracervical coccobacillary. continue Haemophilus coverage. October 26- patient did well overnight currently off BiPAP. On 3 L oxygen. Able to talk in full sentences. No overnight fever or chills. White count up from 14.4-20.5. persistent nonproductive cough. erratic blood sugars likely secondary to steroids. cRP 19.7. Mycoplasma positive. Transfer to medical floor. Anticipate discharge in 24-48 hours if clinically improved. Lower IV steroid dose to 60 twice a day and transition to 40 prednisone and discharged 5 days October 27-patient seen in room. On 4 L oxygen. Feels better than previous day. However not quite baseline. Still labored breathing. On steroids/ antibiotics. White count downtrending at 17.6. on levofloxacin. lower steroids to twice daily October 28 Patient seen and examined, sitting comfortably in the bed, she is able to ambulate in the room without much distress today. She feels much better compared to yesterday. She is on steroids and antibiotics. WBC count is trending down, patient will be switched from IV to oral steroids starting tomorrow. She still on oxygen was on 4 L this morning, will try to wean her off as possible. She does use oxygen at home. October 29 Patient seen examined, sitting comfortably in bed, has no complaints, is able to ambulate well in the room, still on 2 L oxygen, but has been using oxygen at home before, Exam today is much improved, lungs sound much better, mild wheezing. Patient in good spirits, tolerating po diet well and wanting to go home Will discharge home with a prednisone taper and levofloxacin Patient to use nebulizer, duonebx four times a day Discharge Diagnosis A/P Acute hypoxic respiratory failure. / Chronic Respiratory failure (on home oxygen ) Acute COPD exacerbation Sever sepsis- Mycoplasma pneumonia Diabetes type 2 with hyperglycemia, Anxiety disorder Hypothyroidism . No changes have been made to the patient's chronic medication list Discharge diagnosis: Mycoplasma Pneumoina, COPD exacerbation - Time Spent with Patient Total time spent providing and/or coordinating discharge services: Greater than 30 minutes Medical - DS: Exam - Constitutional Vitals: Vital Signs Temp Pulse Pulse Resp BP BP Pulse Ox 10/29/17 10:21 80 18 10/29/17 08:00 94 10/29/17 07:29 85 18 10/29/17 07:00 96.8 F L 16 134/80 95 10/29/17 04:00 97.9 F 77 16 140/86 92 10/28/17 23:38 97.8 F 92 H 18 140/80 92 10/28/17 23:11 80 18 10/28/17 20:00 97.8 F 90 18 162/82 93 10/28/17 19:09 80 16 92 10/28/17 15:32 96.6 F L 16 144/84 92 10/28/17 15:17 80 18 10/28/17 12:00 97.5 F 16 98/64 95 10/28/17 11:16 78 20 Intake and Output 10/28/17 10/29/17 10/29/17 21:59 05:59 13:59 Intake Total 810 / 810 Output Total 300 / 300 400 / 400 Balance 510 / 510 -400 / -400 Intake: Oral 810 / 810 Output: Void Amount 300 / 300 400 / 400 Other: Meal Dinner Percent of Meal Consumed 75% Feeding Ability Independent # Voids 0 Weight 212 lb 8 oz Additional comments: Constitutional; Afebrile, cooperative, alert, not in distress. Eyes- No icterus, , No periorbital swelling Ears- Ext ear normal, hearing normal to conversation. Neck- Midline trachea, supple Respiratory system: Air Entry equal on both sides, No crackles or wheezing, no rhonchi. CVS- Rate rhythm regular, S1,S2 heard, no gallop, no rub. Abdomen- Soft nontender abdomen, no organomegaly, no tenderness, no guarding or rigidity, [employer]- AOOx3, moving all extremities, no gross focal deficit noted. Medical - DS: Data Labs on day of discharge: Labs from last 24 hours 10/29/17 10/29/17 04:15 04:15 WBC 13.7 H RBC 3.86 L Hgb 11.7 L Hct 35.4 L MCV 91.7 MCH 30.4 MCHC 33.1 RDW 13.9 Plt Count 255 MPV 9.3 Gran % 53.8 Lymph % (Auto) 38.9 [place] % (Auto) 5.1 Eos % (Auto) 1.9 Baso % (Auto) 0.3 Gran # 7.4 Lymph # (Auto) 5.3 H [place] # (Auto) 0.7 Eos # (Auto) 0.3 Baso # (Auto) 0 Sodium 140 Potassium 3.7 Chloride 97 Carbon Dioxide 30 Anion Gap 13.0 BUN 19 Creatinine 0.7 GFR Calculation 100 Glucose 109 H Uric Acid 3.9 Calcium 8.9 Phosphorus 2.9 Magnesium 1.8 Total Bilirubin 0.2 Direct Bilirubin < 0.2 GGT 55 H AST 38 H ALT 47 H Alkaline Phosphatase 55 Lactate Dehydrogenase 199 Total Protein 6.0 Albumin 3.4 Globulin 2.6 Albumin/Globulin Ratio 1.3 Triglycerides 147 Preliminary micro results at discharge 10/28/17 18:50 Sputum Culture - Preliminary Sputum - Expectorated 10/24/17 19:19 Blood Culture - Preliminary Blood 10/24/17 19:27 Blood Culture - Preliminary Blood Medical - DS: A/P - Patient/Caregiver Discharge Instructions Activity: wear oxygen at all times Diet: Consistent Carbohydrate Additional Instructions: He was admitted to the hospital for COPD exacerbation as well as bilateral pneumonia. Follow-up with the primary care provider in 1 week Take prednisone as directed, please take this medication with food Take levofloxacin 1 tablet daily for 5 more days. Go to the emergency room if shortness of breath fever chest pain or any other acute concerning symptom - Follow up Plan Follow up with: Ginny Jiménez DO [Primary Care Provider] - 11/02/17 10:30 am Disposition: Home, Self-Care Prognosis: Fair Rehab Potential: Fair I certify that the patient requires SNF services: No Overall status at discharge: patient is progressing back to baseline
[2017-10-29] MEDS: INSULIN GLARGINE, HUMAN 1 UNIT/0.01 ML SQ SCH (11:41)
[2017-10-29] MEDS ORDERED: 0.9 % SODIUM CHLORIDE 10 ML SYRINGE IV SCH (14:00)
[2017-11-30 13:21] LABS: Legionella pneumophilia Ag, Ur NOT DETECTED
== END 2017-10-29 13:34 | disposition home or self-care (01) | DRG 871 ==
LOC: ED 18:16 → ICU 21:56 → MEDSUR 10-26 13:00
PROVIDERS: ADMIT Internal Medicine; ATTEND Internal Medicine